=== PATIENT | female | born 1955 | race Caucasian/White ===

== ENCOUNTER 2019-02-22 05:56 | Outpatient (RCR) | payer BC, SELFPAY | END 2019-03-08 00:01 | LOC: ONCMED 05:56 | PROVIDERS: Family Provider Nurse Practitioner; Visit Provider Internal Medicine Hematology & Oncology | DX: Z08 Encounter for follow-up examination after completed treatment for malignant neoplasm (principal); Z85.048 Personal history of other malignant neoplasm of rectum, rectosigmoid junction, and anus; R94.8 Abnormal results of function studies of other organs and systems; K62.89 Other specified diseases of anus and rectum; Z92.21 Personal history of antineoplastic chemotherapy ==

== ENCOUNTER → 2019-03-08 | Outpatient (CLI) | payer SELFPAY | PROVIDERS: Family Provider Nurse Practitioner; Visit Provider Orthopaedic Surgery | DX: Z46.89 Encounter for fitting and adjustment of other specified devices (principal); S52.591A Other fractures of lower end of right radius, initial encounter for closed fracture; X58.XXXA Exposure to other specified factors, initial encounter | CPT/HCPCS: L3982 ==

== ENCOUNTER → 2019-03-17 11:15 | Outpatient (BNVA) | payer BC, SELFPAY | PROVIDERS: Family Provider Nurse Practitioner; PCP Nurse Practitioner; Visit Provider Orthopaedic Surgery | DX: S52.501A Unspecified fracture of the lower end of right radius, initial encounter for closed fracture (principal); X58.XXXA Exposure to other specified factors, initial encounter | CPT/HCPCS: 73110 ==

== ENCOUNTER 2019-03-24 12:00 | Outpatient (CLI) | payer BC, SELFPAY ==
--- NOTE | 2019-03-24 12:08 | MM_ITS ---
WS: [id number] BILATERAL SCREENING MAMMOGRAM WITH REMEDIOS DISPLACEMENT VIEWS. CAD PERFORMED. HISTORY: SCREENING COMPARISON: 12/29/2017 and 05/08/2016 Bilateral craniocaudal and mediolateral like views are performed. Remedios displacement views in CC and MLO projection also performed. Breasts composition: There are scattered areas of fibroglandular density. Retropectoral implants are intact. No suspicious masses or calcifications. FOLLOW-UP: 1 Year Follow-up MM/[id number] IMPRESSION: BI-RADS: 2-Benign
== END 2019-03-24 12:01 | disposition home or self-care (01) ==
LOC: RADSHAW 12:06
PROVIDERS: Family Provider Nurse Practitioner; PCP Nurse Practitioner; Visit Provider Internal Medicine Hematology & Oncology
DX: Z12.31 Encounter for screening mammogram for malignant neoplasm of breast (principal)
CPT/HCPCS: 77067

== ENCOUNTER → 2019-03-31 11:37 | Outpatient (BNVA) | payer BC, SELFPAY | PROVIDERS: Family Provider Nurse Practitioner; PCP Nurse Practitioner; Visit Provider Orthopaedic Surgery | DX: S52.501A Unspecified fracture of the lower end of right radius, initial encounter for closed fracture (principal); T14.8XXA Other injury of unspecified body region, initial encounter; X58.XXXA Exposure to other specified factors, initial encounter | CPT/HCPCS: 73110 ==

== ENCOUNTER → 2019-04-19 11:33 | Outpatient (BNVA) | payer BC, SELFPAY | PROVIDERS: Family Provider Nurse Practitioner; PCP Nurse Practitioner; Visit Provider Orthopaedic Surgery | DX: S52.501A Unspecified fracture of the lower end of right radius, initial encounter for closed fracture (principal); X58.XXXA Exposure to other specified factors, initial encounter | CPT/HCPCS: 73110 ==

== ENCOUNTER 2019-05-25 13:49 | Outpatient (CLI) | payer BC, SELFPAY ==
[2019-05-25 14:16] LABS: Basophils % 0.5 %; Eosinophils # 0.1 10^3/uL (0.0-0.8); Eosinophils % 1.5 %; Hematocrit 36.8 % (37.0-47.0); Hemoglobin 11.7 g/dL (11.5-15.3); Lymphocytes % 24.4 %; Mean Corpuscular HGB Conc 31.8 g/dL (30.0-36.0); Mean Corpuscular Hemoglobin 28.3 pg (28.0-34.0); Mean Corpuscular Volume 89.1 fL (81-99); Mean Platelet Volume 9.3 fL (7.4-10.4); Monocytes # 0.5 10^3/uL (0.2-0.9); Monocytes % 11.2 %; Neutrophils # 2.6 10^3/uL (1.8-7.7); Neutrophils % 62.4 %; Nucleated Red Blood Cells % 0 %; Platelet Count 213 10^3/cmm (130-400); Red Blood Count 4.13 10^6/uL (4.1-5.3); Red Cell Distribution Width 13.3 % (12.1-15.1); White Blood Count 4.1 10^3/uL (4.0-10.0)
[2019-05-25 14:28] LABS: Alanine Aminotransferase 15 U/L (0-33); Albumin Level 3.5 g/dL (3.5-5.2); Alkaline Phosphatase 90 IU/L (35-105); Anion Gap 11.2 (5-19); Aspartate Amino Transferase 16 U/L (0-32); Blood Urea Nitrogen 11 mg/dL (8-23); Calcium 9.6 mg/dL (8.5-10.5); Carbon Dioxide 30 mmol/L (22-29); Chloride 102 mmol/L (98-107); Globulin 4.2 g/dL (1.3-4.6); Glomerular Filtration Rate 45.4 mL/min (90-130); Glucose 110 mg/dL (65-115); Osmolality Calculated 285 mOsm/kg (285-295); Potassium 4.2 mmol/L (3.5-5.1); Sodium 139 mmol/L (136-145); Total Bilirubin 0.4 mg/dL (0.15-1.2); Total Protein 7.7 g/dL (6.6-8.7)
--- NOTE | 2019-05-25 16:51 | ONC FU_ITS ---
Dr. Syed follow up note Patient: Darlene Stoddard Unit #: [id number]: 1955 Dicatated By: Stacey Syed M.D.Date of Visit:May 25, 2019 Onc Med Follow-up/Prog Note History of Present Illness: Mrs. Darlene Stoddard Is a 63-year-old female with recent history of bowel changes including increased frequency and also noted blood in her stool for which she was referred to Dr. Zazueta for evaluation on 01/12/2018 she underwent colonoscopy which showed malignant appearing ductal mass at 10 cm and a biopsies were obtained which confirmed adenocarcinoma and subsequently underwent CT scan of abdomen pelvis which showed supra levator rectosigmoid colon wall lesion measuring approximately 4.2 cm with a mild posterior wall perirectal fat induration. Left iliac sclerosis with ill-defined zone transition infectious process or neoplastic process her differential Right posterior lower lobe patchy groundglass opacity probably inflammatory and then on 01/27/2018 underwent MRI of pelvis showed rectal mass arising from the mid to upper portion of rectum along with the right lateral aspect of rectum and right ostiomeatal lateral aspect showed mild retraction within the adjacent perirectal fat suspicious for invasion through the rectal wall. Multiple enlarged perirectal as well as a dominant enlarged upper presacral lymph node are noted. Patient was referred to Dr. Esquivel who saw her on 01/25/2018 and recommended neoadjuvant chemoradiation followed by surgery. Started on combined chemoradiation with oral Xeloda on 02/18/2018 Which she concluded on 03/31/2018, subsequently underwent laparoscopic rectosigmoid resection and temporary ileostomy on 05/25/2018, final pathology showed clear margins T3 lesion and 0 out of 28 lymph node positive for metastatic disease. 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 used to resolve within a week. She states that after her last treatment show nevus over her legs were paralyzed . She states it felt like there were bees stinging her legs and her legs just wouldn't move. She states this lasted into the morning. It has not recurred. She had no one-sided weakness or numbness otherwise. She states that she had no speech changes she did not have any syncope or confusion. She also states that she's had right upper leg and hip pain for about 3 weeks that has gotten worse than its normal. She also states it radiates around to her lower back area. The back pain is more intermittent and goes from achy to shooting up her back. Chemotherapy was put on hold and She was referred to neurologist in [place], who evaluated her on 11/01/2018 MRI scan of the spine was done which showed no myelopathic cord signal abnormality in the thorax spinal cord. No bone metastases no compression fracture but mild to moderate neural foraminal stenosis at multiple levels and C-spine, MRI brain was unremarkable further testing with nerve conduction study lower extremity is under consideration. X-ray right hip done on 09/20/2018 showed normal right hip, dextro rotoscoliosis of lumbar spine. Mild spondylosis at L1-L2 Patient was referred to GI oncology at [facility] for second opinion regarding whether to continue her adjuvant chemotherapy with progressive peripheral neuropathy. Patient was seen by Dr. saldaña On 01/13/2019 as per her recommendation discontinue oxaliplatin because of progressive neuropathy but continue with Xeloda or 5-FU to complete 6 months of perioperative chemotherapy or discontinue chemotherapy at this time and then follow-up patient opted for second option e.g. discontinue chemotherapy. Also recommended bone scan for left iliac sclerotic lesion evaluation. Came for follow-up, denies any specific complaints, no fever or chills, no nausea or vomiting, but off and on diarrhea , now being controlled with Imodium. No melena or hematochezia no abdominal pain. she was referred to endocrinology for possible Paget's disease evaluation. Patient has seen endocrinology in [place] and workup is in progress to confirm the diagnosis. Medications: Acetaminophen 2 Tablet (of 500 mg) Oral PRN, Breo Ellipta 1 puff(s) (of 200-25 mcg/inh) Aerosol Powder, Breath Activated Inhalation daily, Esomeprazole Magnesium 1 Tablet (of 20 mg) Tablet, enteric coated Oral daily, Zofran 1 Tablet (of 4 mg) Tablet Oral q 6 hours PRN, Zoloft 1 (50 mg) Tablet Oral daily Allergies: Codeine Sulfate and Erythromycin Base. Review of Systems: Constitutional - Appetite is good and weight is stable. No fever, chills, hot flashes, or night sweats. Energy level is good, ENMT - No sinus congestion/drainage. No mouth sores. No sore throat or difficulty swallowing, Hematologic/Lymphatic - No abnormal bruising or bleeding, Respiratory - No shortness of breath. No cough. No pleuritic pain or hemoptysis, Cardiovascular - No angina pain. No palpitations, Gastrointestinal - No nausea or vomiting. No heartburn or acid reflux. No diarrhea or constipation. No blood in the stool or black stools, Genitourinary (F) - No dysuria or hematuria. No urinary frequency. No urgency or incontinence, Musculoskeletal - No joint or bone pain, Neurologic - No headache or dizziness. Pt continues to complain of numbness in upper extremities, Psychiatric - No anxiety or depression. No insomnia. Vital Signs: Performed on May 25, 2019 15:32 Height - 68.00 in Weight - 154.2 lbs (HIGH) BSA - 1.83 sq.m BMI - 23.45 Temperature - 97.3 F (LOW) Pulse - 88 /min Respiration - 18 /min BP - 134/81 mm(hg) O2 Sat - 98 % Pain - 0 Performance Status: 0 - Fully active, able to carry on all predisease activities without restrictions. (ECOG) Physical Examination: ENMT - No oral exudates, ulcers, masses, thrush or mucositis. Oropharynx clear. Tongue normal, Respiratory - Lungs are clear to auscultation without rhonchi or wheezing, Cardiovascular - Regular rate and rhythm of heart, Abdomen - Non-tender, non-distended, Good bowel sounds. No guarding or rebound tenderness. No pulsatile masses, Extremities - no edema. Lab/Imaging: Test performed on Feb 22, 2019 11:55 Ferritin 93.0 ng/ml Iron 53 ug/dL Vitamin B12 352 pg/mL % Iron Saturation 21.5 % UIBC 193 ug/dL WBC 5.1 10 3/uL RBC 4.10 10 6/uL HGB 11.3 g/dL HCT 36.2 % MCV 88.3 fl MCH 27.6 pg MCHC 31.2 g/dl RDW 13.9 % Platelet Count 334 10 3/cmm MPV 9.1 fl Neutrophils 3.6 10 3/uL Lymphocytes 0.9 10 3/uL Monocytes 0.4 10 3/uL Eosinophils 0.1 10 3/uL Basophils 0.0 10 3/uL Neutrophil % 71.3 % Lymphocyte % 18.6 % Monocyte % 7.9 % Eosinophil % 1.6 % Basophils % 0.4 % Test performed on Jan 20, 2019 14:39 Sodium 139 mmol/L Potassium 4.1 mmol/L Chloride 102 mmol/L CO2 23 mmol/L Anion Gap 18.1 BUN 14 mg/dL Creatinine 0.8 mg/dL Cr Clearance (Est) 75.8100 mL/min eGFR 72.7 mL/min Glucose 106 mg/dl Calcium 9.7 mg/dL Protein, Total 7.7 g/dL Albumin 4.0 g/dL Globulin 3.7 gm/dL Bilirubin, Total 0.3 mg/dL ALT (SGPT) 21 U/L AST (SGOT) 20 U/L Alkaline Phosphatase 104 U/L Impression: Infiltrating adenocarcinoma of rectum per colonoscopy done on 01/12/2018 CT scan of abdomen pelvis showed 4.2 cm supralevator rectosigmoid colon wall lesion. With a mild right lateral and posterior wall perirectal fat induration tumoral extension not excluded. MRI scan of pelvis done on 01/27/2018 showed mass in mid to upper portion of rectum. With area of mild retraction within the adjacent perirectal fat suspicious for invasion through the rectal wall. Multiple enlarged perirectal as well as a dominant enlarged upper presacral lymph node noted cT3,Nx,Mx Started on neoadjuvant combined chemoradiation with oral Xeloda 1500 mg by mouth twice a day Thursday through Thursday concurrent with radiation therapy on 02/18/2018 which she concluded on 03/31/2018 Subsequently underwent laparoscopic rectosigmoid resection with end to end anastomosis and temporary ileostomy bag on 05/25/2018. Final pathology report showed tumor size 1.3 x 2 x 0.2 cm, adenocarcinoma, moderately differentiated, extends through muscularis propria into perirectal adipose tissue pT3, 0 out of 28 lymph nodes showed metastatic disease N0, stage pII Being high risk adjuvant chemotherapy with FOLFOX was recommended.Started on adjuvant chemotherapy with FOLFOX ???12 on 06/30/2018 Plan: Discussed with patient regarding her labs white blood count 4.1 hemoglobin 11.7 crit 36.8 platelets 213,000 CMP within normal limits except creatinine 1.2 Clinically, patient doing well with no signs symptom suggestive of recurrence of disease. Her lab workup looks reasonable except mild renal insufficiency, as per patient PMD is following. Patient was seen by endocrinology regarding possible paget's disease, now workup is in progress. Patient was also told about low vitamin D level so she is on supplement now. As far as mild diarrhea is a concern, etiology is unclear could be due to radiation-induced colitis or other colon pathology. Patient is scheduled for follow-up colonoscopy in September 2019, will discuss with surgery if it can be preponed. Next Return to clinic in 4 months with CBC CMP and CEA Signed By: Stacey Syed M.D. <<Signature on File>>
== END 2019-05-25 13:50 | disposition home or self-care (01) ==
PROVIDERS: Family Provider Nurse Practitioner; PCP Nurse Practitioner; Visit Provider Internal Medicine Hematology & Oncology
DX: Z08 Encounter for follow-up examination after completed treatment for malignant neoplasm (principal); Z85.048 Personal history of other malignant neoplasm of rectum, rectosigmoid junction, and anus; E55.9 Vitamin D deficiency, unspecified; Z79.899 Other long term (current) drug therapy; Z98.890 Other specified postprocedural states; Z92.3 Personal history of irradiation; Z92.21 Personal history of antineoplastic chemotherapy
CPT/HCPCS: 36415; 80053; 85025; G0463

== ENCOUNTER 2019-09-20 10:43 | Outpatient (CLI) | payer BC, SELFPAY ==
[2019-09-20 11:08] LABS: Basophils % 0.5 %; Eosinophils # 0.1 10^3/uL (0.0-0.8); Eosinophils % 2.7 %; Hematocrit 38.2 % (37.0-47.0); Hemoglobin 11.9 g/dL (11.5-15.3); Lymphocytes # 1.1 10^3/uL (0.8-4.8); Mean Corpuscular HGB Conc 31.2 g/dL (30.0-36.0); Mean Corpuscular Hemoglobin 27.7 pg (28.0-34.0); Mean Corpuscular Volume 88.8 fL (81-99); Mean Platelet Volume 8.9 fL (7.4-10.4); Monocytes # 0.4 10^3/uL (0.2-0.9); Monocytes % 10.7 %; Neutrophils # 2.18 10^3/uL (1.8-7.7); Neutrophils % 58.1 %; Nucleated Red Blood Cells % 0 %; Platelet Count 231 10^3/cmm (130-400); Red Cell Distribution Width 13.7 % (12.1-15.1); White Blood Count 3.8 10^3/uL (4.0-10.0)
[2019-09-20 11:27] LABS: Alanine Aminotransferase 15 U/L (0-33); Alkaline Phosphatase 84 IU/L (35-105); Anion Gap 9.1 (5-19); Aspartate Amino Transferase 13 U/L (0-32); Blood Urea Nitrogen 9 mg/dL (8-23); Calcium 9.2 mg/dL (8.5-10.5); Carbon Dioxide 29 mmol/L (22-29); Chloride 106 mmol/L (98-107); Globulin 3.8 g/dL (1.3-4.6); Glomerular Filtration Rate 72.4 mL/min (90-130); Glucose 89 mg/dL (65-115); Osmolality Calculated 285 mOsm/kg (285-295); Potassium 4.1 mmol/L (3.5-5.1); Sodium 140 mmol/L (136-145); Total Bilirubin 0.4 mg/dL (0.15-1.2); Total Protein 7.8 g/dL (6.6-8.7)
--- NOTE | 2019-09-20 14:08 | ONC FU_ITS ---
Dr. Syed follow up note Patient: Darlene Stoddard Unit #: [id number]: 1955 Dicatated By: Stacey Syed M.D.Date of Visit:Sep 20, 2019 Onc Med Follow-up/Prog Note History of Present Illness: Mrs. Darlene Stoddard Is a 64-year-old female with recent history of bowel changes including increased frequency and also noted blood in her stool for which she was referred to Dr. Zazueta for evaluation on 01/12/2018 she underwent colonoscopy which showed malignant appearing ductal mass at 10 cm and a biopsies were obtained which confirmed adenocarcinoma and subsequently underwent CT scan of abdomen pelvis which showed supra levator rectosigmoid colon wall lesion measuring approximately 4.2 cm with a mild posterior wall perirectal fat induration. Left iliac sclerosis with ill-defined zone transition infectious process or neoplastic process her differential Right posterior lower lobe patchy groundglass opacity probably inflammatory and then on 01/27/2018 underwent MRI of pelvis showed rectal mass arising from the mid to upper portion of rectum along with the right lateral aspect of rectum and right ostiomeatal lateral aspect showed mild retraction within the adjacent perirectal fat suspicious for invasion through the rectal wall. Multiple enlarged perirectal as well as a dominant enlarged upper presacral lymph node are noted. Patient was referred to Dr. Esquivel who saw her on 01/25/2018 and recommended neoadjuvant chemoradiation followed by surgery. Started on combined chemoradiation with oral Xeloda on 02/18/2018 Which she concluded on 03/31/2018, subsequently underwent laparoscopic rectosigmoid resection and temporary ileostomy on 05/25/2018, final pathology showed clear margins T3 lesion and 0 out of 28 lymph node positive for metastatic disease. 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 used to resolve within a week. She states that after her last treatment show nevus over her legs were paralyzed . She states it felt like there were bees stinging her legs and her legs just wouldn't move. She states this lasted into the morning. It has not recurred. She had no one-sided weakness or numbness otherwise. She states that she had no speech changes she did not have any syncope or confusion. She also states that she's had right upper leg and hip pain for about 3 weeks that has gotten worse than its normal. She also states it radiates around to her lower back area. The back pain is more intermittent and goes from achy to shooting up her back. Chemotherapy was put on hold and She was referred to neurologist in [place], who evaluated her on 11/01/2018 MRI scan of the spine was done which showed no myelopathic cord signal abnormality in the thorax spinal cord. No bone metastases no compression fracture but mild to moderate neural foraminal stenosis at multiple levels and C-spine, MRI brain was unremarkable further testing with nerve conduction study lower extremity is under consideration. X-ray right hip done on 09/20/2018 showed normal right hip, dextro rotoscoliosis of lumbar spine. Mild spondylosis at L1-L2 Patient was referred to GI oncology at [facility] for second opinion regarding whether to continue her adjuvant chemotherapy with progressive peripheral neuropathy. Patient was seen by Dr. saldaña On 01/13/2019 as per her recommendation discontinue oxaliplatin because of progressive neuropathy but continue with Xeloda or 5-FU to complete 6 months of perioperative chemotherapy or discontinue chemotherapy at this time and then follow-up patient opted for second option e.g. discontinue chemotherapy. Also recommended bone scan for left iliac sclerotic lesion evaluation. she was referred to endocrinology for possible Paget's disease evaluation. Patient has seen endocrinology in [place] and workup is in progress to confirm the diagnosis.Patient did miss her follow-up appointment due to COVID-19, now planning to go back for evaluation Came for follow-up, denies any specific complaints, chronic diarrhea is improving now usually 1 'bad' day after 3 good days. Responding well to Lomotil and some times to Imodium. Earlier patient requested Creon and insurance did not cover it so she decided not to take it. Patient is scheduled for follow-up colonoscopy on coming in [place]. She also has persistent but mild neuropathy involving bilateral toes and now considering acupuncture Medications: Acetaminophen 2 Tablet (of 500 mg) Oral PRN, Breo Ellipta 1 puff(s) (of 200-25 mcg/inh) Aerosol Powder, Breath Activated Inhalation daily, Esomeprazole Magnesium 1 Tablet (of 20 mg) Tablet, enteric coated Oral daily, Zofran 1 Tablet (of 4 mg) Tablet Oral q 6 hours PRN, Zoloft 1 (50 mg) Tablet Oral daily Allergies: Codeine Sulfate and Erythromycin Base. Review of Systems: Constitutional - Appetite is good and weight is stable. No fever, chills, hot flashes, or night sweats. Energy level is good, ENMT - No sinus congestion/drainage. No mouth sores. No sore throat or difficulty swallowing, Hematologic/Lymphatic - No abnormal bruising or bleeding, Respiratory - No shortness of breath. No cough. No pleuritic pain or hemoptysis, Cardiovascular - No angina pain. No palpitations, Gastrointestinal - No nausea or vomiting. No heartburn or acid reflux. No diarrhea or constipation. No blood in the stool or black stools, Genitourinary (F) - No dysuria or hematuria. No urinary frequency. No urgency or incontinence, Musculoskeletal - No joint or bone pain, Neurologic - No headache or dizziness. Pt continues to complain of numbness in upper extremities, Psychiatric - No anxiety or depression. No insomnia. Vital Signs: Performed on Sep 20, 2019 11:48 Height - 68.00 in Weight - 144.0 lbs (LOW) BSA - 1.78 sq.m BMI - 21.90 Temperature - 97.9 F (LOW) Pulse - 75 /min Respiration - 18 /min BP - 137/83 mm(hg) O2 Sat - 99 % Pain - 0 Performance Status: 0 - Fully active, able to carry on all predisease activities without restrictions. (ECOG) Physical Examination: ENMT - No mouth sores, no thrush no jaundice, Respiratory - Lungs are clear, Cardiovascular - Regular rate and rhythm of heart, Abdomen - Soft, bowel sounds present, Extremities - No visible edema. Lab/Imaging: Test performed on May 25, 2019 14:05 Sodium 139 mmol/L Potassium 4.2 mmol/L Chloride 102 mmol/L CO2 30 mmol/L Anion Gap 11.2 BUN 11 mg/dL Creatinine 1.2 mg/dL Cr Clearance (Est) 49.8900 mL/min eGFR 45.4 mL/min Glucose 110 mg/dL Calcium 9.6 mg/dL Protein, Total 7.7 g/dL Albumin 3.5 g/dL Globulin 4.2 g/dL Bilirubin, Total 0.4 mg/dL ALT (SGPT) 15 U/L AST (SGOT) 16 U/L Alkaline Phosphatase 90 IU/L WBC 4.1 10 3/uL RBC 4.13 10 6/uL HGB 11.7 g/dL HCT 36.8 % MCV 89.1 fL MCH 28.3 pg MCHC 31.8 g/dL RDW 13.3 % Platelet Count 213 10 3/cmm MPV 9.3 fL Neutrophils 2.6 10 3/uL Lymphocytes 1.0 10 3/uL Monocytes 0.5 10 3/uL Eosinophils 0.1 10 3/uL Basophils 0.0 10 3/uL Neutrophil % 62.4 % Lymphocyte % 24.4 % Monocyte % 11.2 % Eosinophil % 1.5 % Basophils % 0.5 % Impression: Infiltrating adenocarcinoma of rectum per colonoscopy done on 01/12/2018 CT scan of abdomen pelvis showed 4.2 cm supralevator rectosigmoid colon wall lesion. With a mild right lateral and posterior wall perirectal fat induration tumoral extension not excluded. MRI scan of pelvis done on 01/27/2018 showed mass in mid to upper portion of rectum. With area of mild retraction within the adjacent perirectal fat suspicious for invasion through the rectal wall. Multiple enlarged perirectal as well as a dominant enlarged upper presacral lymph node noted cT3,Nx,Mx Started on neoadjuvant combined chemoradiation with oral Xeloda 1500 mg by mouth twice a day Thursday through Thursday concurrent with radiation therapy on 02/18/2018 which she concluded on 03/31/2018 Subsequently underwent laparoscopic rectosigmoid resection with end to end anastomosis and temporary ileostomy bag on 05/25/2018. Final pathology report showed tumor size 1.3 x 2 x 0.2 cm, adenocarcinoma, moderately differentiated, extends through muscularis propria into perirectal adipose tissue pT3, 0 out of 28 lymph nodes showed metastatic disease N0, stage pII Being high risk adjuvant chemotherapy with FOLFOX was recommended.Started on adjuvant chemotherapy with FOLFOX ???12 on 06/30/2018 Plan: Discussed with patient regarding her labs white blood count 3.8 hemoglobin 11.9 hematocrit 38.2 platelets 231,000 CMP within normal limits creatinine 0.8 compared to 1.2 previously Clinically, patient doing well with no signs symptoms suggestive of recurrence of disease. Chronic diarrhea etiology unclear, radiation-induced colitis versus malabsorption versus diet. But responding well to antidiarrheal, patient was advised to rely on Imodium if not effective then she can try Lomotil. Lab work-up shows electrolytes within normal range. Mild leukopenia, etiology unclear, will continue to monitor Return to clinic in 3 months with CBC CMP. Patient is being evaluated by endocrinology for her possible Paget's disease in [place], patient missed her appointment due to COVID-19, now planning to go back for evaluation and work-up. And also scheduled for follow-up colonoscopy on coming in [place]. Mild peripheral neuropathy involving bilateral toes, stable, patient is considering acupuncture trial. Signed By: Stacey Syed M.D. <<Signature on File>>
== END 2019-09-20 10:44 | disposition home or self-care (01) ==
PROVIDERS: PCP Nurse Practitioner; Visit Provider Internal Medicine Hematology & Oncology
DX: Z08 Encounter for follow-up examination after completed treatment for malignant neoplasm (principal); Z85.048 Personal history of other malignant neoplasm of rectum, rectosigmoid junction, and anus; G62.9 Polyneuropathy, unspecified; Z92.3 Personal history of irradiation; Z92.21 Personal history of antineoplastic chemotherapy
CPT/HCPCS: 80053; 85025; G0463

== ENCOUNTER 2019-12-23 05:53 | Outpatient (CLI) | payer BC, SELFPAY ==
[2019-12-23 09:47] LABS: Basophils % 0.2 %; Hematocrit 35.8 % (37.0-47.0); Hemoglobin 11.4 g/dL (11.5-15.3); Lymphocytes # 1.6 10^3/uL (0.8-4.8); Lymphocytes % 12.3 %; Mean Corpuscular HGB Conc 31.8 g/dL (30.0-36.0); Mean Corpuscular Hemoglobin 28.1 pg (28.0-34.0); Mean Corpuscular Volume 88.4 fL (81-99); Mean Platelet Volume 9.1 fL (7.4-10.4); Monocytes # 0.6 10^3/uL (0.2-0.9); Monocytes % 4.6 %; Neutrophils # 10.47 10^3/uL (1.8-7.7); Neutrophils % 80.3 %; Nucleated Red Blood Cells % 0 %; Platelet Count 336 10^3/cmm (130-400); Red Blood Count 4.05 10^6/uL (4.1-5.3); Red Cell Distribution Width 13.4 % (12.1-15.1)
[2019-12-23 09:56] LABS: Alanine Aminotransferase 21 U/L (0-33); Alkaline Phosphatase 117 IU/L (35-105); Anion Gap 13.9 (5-19); Aspartate Amino Transferase 13 U/L (0-32); Blood Urea Nitrogen 22 mg/dL (8-23); Calcium 9.9 mg/dL (8.5-10.5); Carbon Dioxide 25 mmol/L (22-29); Chloride 102 mmol/L (98-107); Glomerular Filtration Rate 84.5 mL/min (90-130); Glucose 139 mg/dL (65-115); Osmolality Calculated 290 mOsm/kg (285-295); Potassium 3.9 mmol/L (3.5-5.1); Sodium 137 mmol/L (136-145); Total Bilirubin 0.2 mg/dL (0.15-1.2)
--- NOTE | 2019-12-23 13:00 | ONC FU_ITS ---
Dr. Syed follow up note Patient: Darlene Stoddard Unit #: [id number]: 1955 Dicatated By: Stacey Syed M.D.Date of Visit:Dec 23, 2019 Onc Med Follow-up/Prog Note History of Present Illness: Mrs. Darlene Stoddard Is a 64-year-old female with recent history of bowel changes including increased frequency and also noted blood in her stool for which she was referred to Dr. Zazueta for evaluation on 01/12/2018 she underwent colonoscopy which showed malignant appearing ductal mass at 10 cm and a biopsies were obtained which confirmed adenocarcinoma and subsequently underwent CT scan of abdomen pelvis which showed supra levator rectosigmoid colon wall lesion measuring approximately 4.2 cm with a mild posterior wall perirectal fat induration. Left iliac sclerosis with ill-defined zone transition infectious process or neoplastic process her differential Right posterior lower lobe patchy groundglass opacity probably inflammatory and then on 01/27/2018 underwent MRI of pelvis showed rectal mass arising from the mid to upper portion of rectum along with the right lateral aspect of rectum and right ostiomeatal lateral aspect showed mild retraction within the adjacent perirectal fat suspicious for invasion through the rectal wall. Multiple enlarged perirectal as well as a dominant enlarged upper presacral lymph node are noted. Patient was referred to Dr. Esquivel who saw her on 01/25/2018 and recommended neoadjuvant chemoradiation followed by surgery. Started on combined chemoradiation with oral Xeloda on 02/18/2018 Which she concluded on 03/31/2018, subsequently underwent laparoscopic rectosigmoid resection and temporary ileostomy on 05/25/2018, final pathology showed clear margins T3 lesion and 0 out of 28 lymph node positive for metastatic disease. 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 used to resolve within a week. She states that after her last treatment show nevus over her legs were paralyzed . She states it felt like there were bees stinging her legs and her legs just wouldn't move. She states this lasted into the morning. It has not recurred. She had no one-sided weakness or numbness otherwise. She states that she had no speech changes she did not have any syncope or confusion. She also states that she's had right upper leg and hip pain for about 3 weeks that has gotten worse than its normal. She also states it radiates around to her lower back area. The back pain is more intermittent and goes from achy to shooting up her back. Chemotherapy was put on hold and She was referred to neurologist in [place], who evaluated her on 11/01/2018 MRI scan of the spine was done which showed no myelopathic cord signal abnormality in the thorax spinal cord. No bone metastases no compression fracture but mild to moderate neural foraminal stenosis at multiple levels and C-spine, MRI brain was unremarkable further testing with nerve conduction study lower extremity is under consideration. X-ray right hip done on 09/20/2018 showed normal right hip, dextro rotoscoliosis of lumbar spine. Mild spondylosis at L1-L2 Patient was referred to GI oncology at [facility] for second opinion regarding whether to continue her adjuvant chemotherapy with progressive peripheral neuropathy. Patient was seen by Dr. saldaña On 01/13/2019 as per her recommendation discontinue oxaliplatin because of progressive neuropathy but continue with Xeloda or 5-FU to complete 6 months of perioperative chemotherapy or discontinue chemotherapy at this time and then follow-up patient opted for second option e.g. discontinue chemotherapy. Also recommended bone scan for left iliac sclerotic lesion evaluation. she was referred to endocrinology for possible Paget's disease evaluation. Patient has seen endocrinology in [place] and workup is in progress to confirm the diagnosis.Patient did miss her follow-up appointment due to COVID-19, now planning to go back for evaluation Came for follow-up, denies any specific complaint but now recovering from COPD exacerbation, on antibiotics doxycycline and steroids by PMD. And feeling better. No melena or hematochezia, no nausea or vomiting, no jaundice, no hemoptysis or hematemesis, no abdominal pain. Patient had colonoscopy done in [place] in September 2019 as per patient was unremarkable. Her Port-A-Cath is also out. Patient has seen endocrinology for Paget's disease, DEXA scan was ordered and now she is waiting for rescheduled date. Since her last visit she has seen neurology for her persistent lower extremity neuropathy, patient said she was given medication but she did not like it, now neuropathy is improving and she is not taking any medicine and decided not to follow-up with neurology either Medications: Acetaminophen 2 Tablet (of 500 mg) Oral PRN, Breo Ellipta 1 puff(s) (of 200-25 mcg/inh) Aerosol Powder, Breath Activated Inhalation daily, Doxycycline 1 Capsule (of 40 mg) Capsule Delayed Release Oral daily for 7 days, Esomeprazole Magnesium 1 Tablet (of 20 mg) Tablet, enteric coated Oral daily, predniSONE Tablet Oral Take as Directed, Zofran 1 Tablet (of 4 mg) Tablet Oral q 6 hours PRN, Zoloft 1 (50 mg) Tablet Oral daily Allergies: Codeine Sulfate and Erythromycin Base. Review of Systems: Constitutional - Appetite is good and weight is stable. No fever, chills, hot flashes, or night sweats. Energy level is good, ENMT - No sinus congestion/drainage. No mouth sores. No sore throat or difficulty swallowing, Hematologic/Lymphatic - No abnormal bruising or bleeding, Respiratory - No shortness of breath. No cough. No pleuritic pain or hemoptysis, Cardiovascular - No angina pain. No palpitations, Gastrointestinal - No nausea or vomiting. No heartburn or acid reflux. No diarrhea or constipation. No blood in the stool or black stools, Genitourinary (F) - No dysuria or hematuria. No urinary frequency. No urgency or incontinence, Musculoskeletal - No joint or bone pain, Neurologic - No headache or dizziness, Psychiatric - No anxiety or depression. No insomnia. Vital Signs: Performed on Dec 23, 2019 11:16 Height - 68.00 in Weight - 143.0 lbs (LOW) BSA - 1.77 sq.m BMI - 21.74 Temperature - 98.3 F (LOW) Pulse - 69 /min Respiration - 18 /min BP - 147/95 mm(hg) (HIGH) O2 Sat - 98 % Pain - 0 Performance Status: 0 - Fully active, able to carry on all predisease activities without restrictions. (ECOG) Physical Examination: ENMT - No mouth sores, no thrush, no jaundice, Respiratory - Poor air entry mild wheezing, Cardiovascular - Regular rate and rhythm of heart, Abdomen - Soft, bowel sounds present, Extremities - No visible edema. Lab/Imaging: Test performed on Sep 20, 2019 10:55 Sodium 140 mmol/L Potassium 4.1 mmol/L Chloride 106 mmol/L CO2 29 mmol/L Anion Gap 9.1 BUN 9 mg/dL Creatinine 0.8 mg/dL Cr Clearance (Est) 74.8400 mL/min eGFR 72.4 mL/min Glucose 89 mg/dL Calcium 9.2 mg/dL Protein, Total 7.8 g/dL Albumin 4.0 g/dL Globulin 3.8 g/dL Bilirubin, Total 0.4 mg/dL ALT (SGPT) 15 U/L AST (SGOT) 13 U/L Alkaline Phosphatase 84 IU/L WBC 3.8 10 3/uL RBC 4.30 10 6/uL HGB 11.9 g/dL HCT 38.2 % MCV 88.8 fL MCH 27.7 pg MCHC 31.2 g/dL RDW 13.7 % Platelet Count 231 10 3/cmm MPV 8.9 fL Neutrophils 2.18 10 3/uL Lymphocytes 1.1 10 3/uL Monocytes 0.4 10 3/uL Eosinophils 0.1 10 3/uL Basophils 0.0 10 3/uL Neutrophil % 58.1 % Lymphocyte % 28.0 % Monocyte % 10.7 % Eosinophil % 2.7 % Basophils % 0.5 % NRBC % 0 % Impression: Infiltrating adenocarcinoma of rectum per colonoscopy done on 01/12/2018 CT scan of abdomen pelvis showed 4.2 cm supralevator rectosigmoid colon wall lesion. With a mild right lateral and posterior wall perirectal fat induration tumoral extension not excluded. MRI scan of pelvis done on 01/27/2018 showed mass in mid to upper portion of rectum. With area of mild retraction within the adjacent perirectal fat suspicious for invasion through the rectal wall. Multiple enlarged perirectal as well as a dominant enlarged upper presacral lymph node noted cT3,Nx,Mx Started on neoadjuvant combined chemoradiation with oral Xeloda 1500 mg by mouth twice a day Thursday through Thursday concurrent with radiation therapy on 02/18/2018 which she concluded on 03/31/2018 Subsequently underwent laparoscopic rectosigmoid resection with end to end anastomosis and temporary ileostomy bag on 05/25/2018. Final pathology report showed tumor size 1.3 x 2 x 0.2 cm, adenocarcinoma, moderately differentiated, extends through muscularis propria into perirectal adipose tissue pT3, 0 out of 28 lymph nodes showed metastatic disease N0, stage pII Being high risk adjuvant chemotherapy with FOLFOX was recommended.Started on adjuvant chemotherapy with FOLFOX ???12 on 06/30/2018 Plan: Discussed with patient regarding her labs white blood count 13 hemoglobin 11.4 hematocrit 35. 8 platelets 336,000 CMP within normal limits Clinically, patient is doing well with no signs symptom suggestive of recurrence of disease. Her follow-up colonoscopy done in September 2019 was unremarkable. Her lab work-up looks reasonable with stable mild anemia. We will continue to monitor and she will return to clinic in 6 months with CBC CMP. Mild leukocytosis probably due to steroids, patient is oral antibiotic and steroids for COPD exacerbation. Signed By: Stacey Syed M.D. <<Signature on File>>
== END 2019-12-23 05:54 | disposition home or self-care (01) ==
LOC: ONCMED 05:53
PROVIDERS: PCP Nurse Practitioner; Visit Provider Internal Medicine Hematology & Oncology
DX: Z08 Encounter for follow-up examination after completed treatment for malignant neoplasm (principal); Z85.048 Personal history of other malignant neoplasm of rectum, rectosigmoid junction, and anus; J44.1 Chronic obstructive pulmonary disease with (acute) exacerbation; Z92.21 Personal history of antineoplastic chemotherapy; Z92.3 Personal history of irradiation; Z90.49 Acquired absence of other specified parts of digestive tract; Z79.52 Long term (current) use of systemic steroids
CPT/HCPCS: 36415; 80053; 85025; G0463

== ENCOUNTER 2020-07-20 09:15 | Outpatient (CLI) | payer BC, SELFPAY ==
--- NOTE | 2020-07-20 09:45 | FL_ITS ---
WS: [id number] Barium swallow and esophagram, 07/20/2020 Clinical Data: DYSPHAGIA Comparison: None. Fluoroscopy time: 1.1 minutes. Findings: The patient swallowed the thick and thin barium, and it flowed through the hypopharynx without hesita tion. No stricture, mass, polyp or erosion was seen. The barium entered the esophagus and there was reduced motility throughout. No hiatal hernia, strict ure, polyp, mass, erosion or ulcer was noted. There was moderate gastroesophageal reflux.. FL/FL barium swallow [id number] Impression: 1. Poor esophageal motility. 2. Negative for hiatal hernia but there was moderate gastroesophageal reflux.
== END 2020-07-20 09:16 | disposition home or self-care (01) ==
LOC: RADWPI 09:18
PROVIDERS: PCP Nurse Practitioner; Visit Provider Family Medicine
DX: R13.10 Dysphagia, unspecified (principal)
CPT/HCPCS: 74220

== ENCOUNTER 2020-11-22 13:29 | Outpatient (CLI) | payer BC, SELFPAY ==
[2020-11-22 14:23] LABS: Basophils % 0.5 %; Eosinophils # 0.1 10^3/uL (0.0-0.8); Eosinophils % 1.6 %; Hematocrit 37.7 % (37.0-47.0); Lymphocytes # 1.7 10^3/uL (0.8-4.8); Lymphocytes % 29.7 %; Mean Corpuscular HGB Conc 31.8 g/dL (30.0-36.0); Mean Corpuscular Hemoglobin 28.6 pg (28.0-34.0); Mean Corpuscular Volume 89.8 fl (81-99); Mean Platelet Volume 8.9 fL (7.4-10.4); Monocytes # 0.5 10^3/uL (0.2-0.9); Monocytes % 8.4 %; Neutrophils # 3.28 10^3/uL (1.8-7.7); Neutrophils % 58.9 %; Nucleated Red Blood Cells % 0 %; Platelet Count 217 10^3/cmm (130-400); Red Cell Distribution Width 13.5 % (12.1-15.1); White Blood Count 5.6 10^3/uL (4.0-10.0)
[2020-11-22 14:59] LABS: Alanine Aminotransferase 11 U/L (0-33); Albumin Level 3.8 g/dL (3.5-5.2); Alkaline Phosphatase 87 IU/L (35-105); Anion Gap 12.9 (5-19); Aspartate Amino Transferase 10 U/L (0-32); Blood Urea Nitrogen 14 mg/dL (8-23); Calcium 8.9 mg/dL (8.5-10.5); Carbon Dioxide 26 mmol/L (22-29); Chloride 104 mmol/L (98-107); Globulin 3.2 g/dL (1.3-4.6); Glomerular Filtration Rate 84.2 mL/min (90-130); Glucose 132 mg/dL (65-115); Osmolality Calculated 290 mOsm/kg (285-295); Potassium 3.9 mmol/L (3.5-5.1); Sodium 139 mmol/L (136-145); Total Bilirubin 0.3 mg/dL (0.15-1.2)
== END 2020-11-22 13:30 | disposition home or self-care (01) ==
LOC: ONCMED 13:34
PROVIDERS: PCP Nurse Practitioner; Visit Provider Internal Medicine Hematology & Oncology
DX: C20 Malignant neoplasm of rectum (principal)
CPT/HCPCS: 36415; 80053; 85025

== ENCOUNTER 2020-11-29 06:41 | Outpatient (CLI) | payer BC, SELFPAY ==
--- NOTE | 2020-11-30 12:57 | ONC FU_ITS ---
Dr. Syed follow up note Patient: Darlene Stoddard Unit #: [id number]: 1955 Dicatated By: Stacey Syed M.D.Date of Visit:Nov 29, 2020 Onc Med Follow-up/Prog Note History of Present Illness: Mrs. Darlene Stoddard Is a 65-year-old female with recent history of bowel changes including increased frequency and also noted blood in her stool for which she was referred to Dr. Zazueta for evaluation on 01/12/2018 she underwent colonoscopy which showed malignant appearing ductal mass at 10 cm and a biopsies were obtained which confirmed adenocarcinoma and subsequently underwent CT scan of abdomen pelvis which showed supra levator rectosigmoid colon wall lesion measuring approximately 4.2 cm with a mild posterior wall perirectal fat induration. Left iliac sclerosis with ill-defined zone transition infectious process or neoplastic process her differential Right posterior lower lobe patchy groundglass opacity probably inflammatory and then on 01/27/2018 underwent MRI of pelvis showed rectal mass arising from the mid to upper portion of rectum along with the right lateral aspect of rectum and right ostiomeatal lateral aspect showed mild retraction within the adjacent perirectal fat suspicious for invasion through the rectal wall. Multiple enlarged perirectal as well as a dominant enlarged upper presacral lymph node are noted. Patient was referred to Dr. Esquivel who saw her on 01/25/2018 and recommended neoadjuvant chemoradiation followed by surgery. Started on combined chemoradiation with oral Xeloda on 02/18/2018 Which she concluded on 03/31/2018, subsequently underwent laparoscopic rectosigmoid resection and temporary ileostomy on 05/25/2018, final pathology showed clear margins T3 lesion and 0 out of 28 lymph node positive for metastatic disease. 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 used to resolve within a week. She states that after her last treatment show nevus over her legs were paralyzed . She states it felt like there were bees stinging her legs and her legs just wouldn't move. She states this lasted into the morning. It has not recurred. She had no one-sided weakness or numbness otherwise. She states that she had no speech changes she did not have any syncope or confusion. She also states that she's had right upper leg and hip pain for about 3 weeks that has gotten worse than its normal. She also states it radiates around to her lower back area. The back pain is more intermittent and goes from achy to shooting up her back. Chemotherapy was put on hold and She was referred to neurologist in [place], who evaluated her on 11/01/2018 MRI scan of the spine was done which showed no myelopathic cord signal abnormality in the thorax spinal cord. No bone metastases no compression fracture but mild to moderate neural foraminal stenosis at multiple levels and C-spine, MRI brain was unremarkable further testing with nerve conduction study lower extremity is under consideration. X-ray right hip done on 09/20/2018 showed normal right hip, dextro rotoscoliosis of lumbar spine. Mild spondylosis at L1-L2 Patient was referred to GI oncology at [facility] for second opinion regarding whether to continue her adjuvant chemotherapy with progressive peripheral neuropathy. Patient was seen by Dr. saldaña On 01/13/2019 as per her recommendation discontinue oxaliplatin because of progressive neuropathy but continue with Xeloda or 5-FU to complete 6 months of perioperative chemotherapy or discontinue chemotherapy at this time and then follow-up patient opted for second option e.g. discontinue chemotherapy. Also recommended bone scan for left iliac sclerotic lesion evaluation. she was referred to endocrinology for possible Paget's disease evaluation. 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 Otherwise denies any melena or hematochezia denies any hemoptysis hematemesis denies any jaundice denies any abdominal pain, weight is stable rather she is gaining weight. Medications: Aspirin 81 1 Tablet (of 81 mg) Tablet, chewable Oral daily, Breo Ellipta 1 puff(s) (of 200-25 mcg/inh) Aerosol Powder, Breath Activated Inhalation daily, Pantoprazole Sodium 1 Tablet (of 40 mg) Tablet, enteric coated Oral daily, Zofran 1 Tablet (of 4 mg) Tablet Oral q 6 hours PRN, Zoloft 1 (50 mg) Tablet Oral daily Allergies: Codeine Sulfate and Erythromycin Base. Review of Systems: Review of Systems is not available for this patient. Vital Signs: Performed on Nov 29, 2020 10:10 Height - 68.00 in Weight - 153.4 lbs (HIGH) BSA - 1.83 sq.m BMI - 23.32 Temperature - 97.3 F (LOW) Pulse - 75 /min Respiration - 18 /min BP - 176/85 mm(hg) (HIGH) O2 Sat - 99 % Pain - 4 Performance Status: 0 - Fully active, able to carry on all predisease activities without restrictions. (ECOG) Physical Examination: ENMT - No mouth sores, no thrush, no jaundice, Respiratory - Lungs are clear to auscultation, Cardiovascular - Regular rate and rhythm of heart, Abdomen - Soft, bowel sounds present, Extremities - No visible edema. Lab/Imaging: Most recent lab results are not available for this patient. Impression: Infiltrating adenocarcinoma of rectum per colonoscopy done on 01/12/2018 CT scan of abdomen pelvis showed 4.2 cm supralevator rectosigmoid colon wall lesion. With a mild right lateral and posterior wall perirectal fat induration tumoral extension not excluded. MRI scan of pelvis done on 01/27/2018 showed mass in mid to upper portion of rectum. With area of mild retraction within the adjacent perirectal fat suspicious for invasion through the rectal wall. Multiple enlarged perirectal as well as a dominant enlarged upper presacral lymph node noted cT3,Nx,Mx Started on neoadjuvant combined chemoradiation with oral Xeloda 1500 mg by mouth twice a day Thursday through Thursday concurrent with radiation therapy on 02/18/2018 which she concluded on 03/31/2018 Subsequently underwent laparoscopic rectosigmoid resection with end to end anastomosis and temporary ileostomy bag on 05/25/2018. Final pathology report showed tumor size 1.3 x 2 x 0.2 cm, adenocarcinoma, moderately differentiated, extends through muscularis propria into perirectal adipose tissue pT3, 0 out of 28 lymph nodes showed metastatic disease N0, stage pII Being high risk adjuvant chemotherapy with FOLFOX was recommended.Started on adjuvant chemotherapy with FOLFOX ???12 on 06/30/2018 Plan: Discussed with patient regarding her labs white blood count 5.6 hemoglobin 12 hematocrit 37.7 platelets 217,000 CMP within normal limits Patient has no signs symptoms history of recurrence of disease her lab work-up is within normal range Now at patient request we will refer her local endocrinology clinic for evaluation for Paget's disease and patient is on antidepression for long time and she was complaining of couple of episodes of emotional outburst, we will refer her to psychiatry for evaluation and readjustment of her medication. We will also order follow-up mammogram. She will return to clinic in 6 months with CBC CMP. Signed By: Stacey Syed M.D. <<Signature on File>>
== END 2020-11-29 06:42 | disposition home or self-care (01) ==
LOC: ONCMED 06:41
PROVIDERS: PCP Nurse Practitioner; Visit Provider Internal Medicine Hematology & Oncology
DX: Z08 Encounter for follow-up examination after completed treatment for malignant neoplasm (principal); Z85.038 Personal history of other malignant neoplasm of large intestine; Z92.21 Personal history of antineoplastic chemotherapy; M88.9 Osteitis deformans of unspecified bone; Z79.82 Long term (current) use of aspirin; Z79.899 Other long term (current) drug therapy
CPT/HCPCS: 99214

== ENCOUNTER 2021-01-14 09:29 | Outpatient (CLI) | payer BC, SELFPAY ==
--- NOTE | 2021-01-14 09:36 | NM_ITS ---
WS: [id number] NUCLEAR MEDICINE WHOLE BODY BONE SCAN HISTORY: SUSPECTED PAGETS COMPARISON: 02/02/2019, CT 12/28/2018 TECHNIQUE: The patient was injected with 25.0 mCi of Technetium 99m HDP and serial whole-body scintig dav have been performed with anterior and posterior images. Diffuse uptake throughout the calvarium is similar to the prior examination. There is also very mild increased uptake but slightly improved since the prior examination through the sacrum and along the S I joints. Mild degenerative changes at the AC joints and glenohumeral joints and at the knees. Thorac olumbar scoliosis. As compared to the prior study there is been no progression of skeletal uptake. Normal soft tissue up take. Both kidneys are identified. NM/NM bone scan whole body* [id number] IMPRESSION: 1. Stable increased uptake within the skull and sacrum as seen on the prior ex amination from 02/02/2019. As thought before this is most likely Paget's due to its distribution and stability. 2. No evidence for metastatic disease or interval change.
== END 2021-01-14 09:30 | disposition home or self-care (01) ==
PROVIDERS: PCP Family Medicine; Visit Provider Internal Medicine
DX: M88.9 Osteitis deformans of unspecified bone (principal)
CPT/HCPCS: 78306; A9561

== ENCOUNTER → 2021-01-18 10:30 | Outpatient (BNVA) | payer BC, SELFPAY | PROVIDERS: PCP Family Medicine; Visit Provider Nurse Practitioner Family | DX: Z20.822 Contact with and (suspected) exposure to COVID-19 (principal) | CPT/HCPCS: 87426 ==

== ENCOUNTER 2021-01-24 13:23 | Outpatient (CLI) | payer BC, SELFPAY ==
[2021-01-24 14:10] VITALS: BP 151/77; PULSE 95; RESP 20; TEMP 36.4; O2SAT 97; BMI 22.8
[2021-01-24 14:18] VITALS: BP 139/76; PULSE 87; RESP 18; TEMP 36.1; O2SAT 95
[2021-01-24 15:18] VITALS: BP 143/77; PULSE 83; RESP 18; TEMP 36.4; O2SAT 95
== END 2021-01-24 13:24 | disposition home or self-care (01) ==
PROVIDERS: PCP Family Medicine; Visit Provider Nurse Practitioner Family
DX: U07.1 COVID-19 (principal)
CPT/HCPCS: 96365

== ENCOUNTER 2021-03-26 13:48 | Outpatient (CLI) | payer MEDICARE, BC, SELFPAY ==
--- NOTE | 2021-03-26 14:08 | XRR_ITS ---
PROCEDURE INFORMATION: Exam: XR Skull Exam date and time: 03/26/2021 2:08 PM Age: 66 years old Clinical indication: Condition or disease; Other: Suspecting paget's disease; Patient HX: Paget's disease, had recent nuclear bone scan; Additional info: Suspecting paget's disease, HX of colorectal cancer TECHNIQUE: Imaging protocol: XR of the skull. Views: Minimum of 4 views. COMPARISON: CR Skull Complete* [id number] 02/02/2019 1:54 PM FINDINGS: Sinuses: Well aerated. No opacification. Bones/joints: No fracture. No lytic or sclerotic calvarial lesions are seen. Soft tissues: Unremarkable. XR/XR skull min 4V* [id number] IMPRESSION: Unremarkable. No radiographic findings to indicate Paget's disease of the skull.
--- NOTE | 2021-03-26 14:08 | XRR_ITS ---
PROCEDURE INFORMATION: Exam: XR Pelvis Exam date and time: 03/26/2021 2:08 PM Age: 66 years old Clinical indication: Condition or disease; Other: Suspecting paget's disease; Prior surgery; Surgery type: Colon; Patient HX: HX of colorectal cx TECHNIQUE: Imaging protocol: XR pelvis. Views: 1 or 2 view. COMPARISON: CT Chest/Abdomen/Pelvis w IV* 12/28/2018 1:15 PM FINDINGS: Bones/joints: No asymmetric enlargement or coarsened trabeculation of the osseous structures of the pelvis. No acute fracture. Soft tissues: Unremarkable. XR/XR pelvis 1-2V* [id number] IMPRESSION: No radiographic findings to indicate Paget's disease of the pelvis.
--- NOTE | 2021-03-26 14:15 | XR_ITS ---
WS: [id number] SCREENING DEXA SCAN [employer] CLINICAL INFORMATION: osteoporosis COMPARISON: None. FINDINGS: Lumbar scoliosis convex right. The L1-L4 bone mineral density measures 0.763 g/cm2. This corresponds to a T score score of -3.5 and Z score of -2.0. Left femoral neck bone mineral density measures 0.814 g/cm2. This corresponds to a T score of -1.5 an d Z score of -0.4. Right femoral neck bone mineral density measures 0.789 g/cm2. This corresponds to a T score -1.7of an d Z score of -0.6. Mean femoral neck bone mineral density measures 0.802 g/cm2. This corresponds to a T score of -1.6 an d Z score of -0.5. XR/XR DEXA axial skeleton* [id number] IMPRESSION: Osteoporosis in the lumbar spine. Osteopenia in the femoral necks. Patient's FRAX calculated 10 year probability for major osteoporotic fracture i s 18.1 % and osteoporotic hip fracture is 3.1%.
== END 2021-03-26 13:49 | disposition home or self-care (01) ==
PROVIDERS: PCP Family Medicine; Visit Provider Internal Medicine
DX: M81.0 Age-related osteoporosis without current pathological fracture (principal); M88.9 Osteitis deformans of unspecified bone
CPT/HCPCS: 70260; 72170; 77080

== ENCOUNTER → 2021-04-01 11:01 | Outpatient (BNVA) | payer MEDICARE, BC, SELFPAY | PROVIDERS: PCP Family Medicine; Visit Provider Internal Medicine | DX: M81.0 Age-related osteoporosis without current pathological fracture (principal); M88.9 Osteitis deformans of unspecified bone; G62.0 Drug-induced polyneuropathy; T45.1X5A Adverse effect of antineoplastic and immunosuppressive drugs, initial encounter; G62.9 Polyneuropathy, unspecified | CPT/HCPCS: 99214 ==

== ENCOUNTER 2021-06-08 20:07 | Emergency (ER) | payer MEDICARE, SELFPAY ==
[2021-06-08 20:19] VITALS: BP 142/86; PULSE 103; RESP 24; TEMP 36.2; O2SAT 100; BMI 22.0
--- NOTE | 2021-06-08 20:53 | ED_ITS ---
Documented by User: Isael Rodriguez MD 06/15/21 23:58 HPI - SOB/Dyspnea General: Chief Complaint: Shortness of Breath/Dyspnea Stated Complaint: Blood H2o 61, Covid Symptoms Time Seen by Provider: 06/08/21 20:53 History of Present Illness: HPI Narrative: Ms. Stoddard is a 66-year-old lady with history of asthma typically well control led, history of Paget's disease and also history of colon cancer not currently on active chemotherapy who presents to the emergency department due to infectious respiratory symptoms. She endorses symptom onset approximately 5 days ago while and symptoms were subacute in onset. She endorses headache, body aches, cough, shortness of breath, and chest soreness. Symptoms initially were fairly mild however has significantly worsened and become moderate to severe in intensity. She endorses cough and shortness of breath with exertion. She has been increasing her dose of home asthma related treatments, typically her asthma is well controlled, and continue to not feel well with wheezing. She did not receive her flu vaccine but does have a history of Covid and received Covid vaccine. No other specific changes in health, exacerbating, or alleviating factors identified. Onset (ago): day(s) Timing: constant Severity: moderate Associated symptoms: Reports chest congestion, cough and myalgias Review of Systems General: Reports: 10 or more systems reviewed and unremarkable except in HPI and below Resp: Reports: chest congestion PFSH ED PFSH: Medical History Asthma Colorectal cancer Depression Diverticulosis Neuropathy of both feet Psychiatric care Rectal cancer Saline breast implant in situ Scoliosis Surgical History H/O ileostomy H/O: hysterectomy History of breast augmentation History of tonsillectomy Family History Father Cancer Atrial fibrillation Hypertension Mother Arterial stenosis Hyperlipidemia Hypertension Grandmother Diabetes Other Alzheimer disease Neuropathy Stroke Social History Alcohol intake: current Alcohol intake frequency: holidays/special occasions only Caregiver/support person: Yes Lives independently: Yes Household members: spouse Marital status: Current occupational status: retired Physical Exam Const: COMMON NORMALS: alert GENERAL APPEARANCE: cooperative, well d eveloped and ill appearing (Somewhat) HENMT: COMMON NORMALS: normocephalic and atraumatic HEAD & SCALP: normocephalic and atraumatic THROAT: posterior oropharynx normal Eye: COMMON NORMALS: conjunctivae normal CONJUNCTIVA: Yes conjunctivae normal SCLERA: sclerae normal Neck/C-Spine: COMMON NORMALS: supple GENERAL: Yes trachea midline Resp: EFFORT & INSPECTION: Yes able to speak in complete sentences AUSCULTATION: wheezes expiratory wheezes and diminished lung sounds Cardio: COMMON NORMALS: regular rhythm RATE: tachycardic RHYTHM: regular rhythm GI: COMMON NORMALS: Soft to palpation PALPATION: Yes Soft to palpation and No Tenderness to palpation present (GI) PERCUSSION: normal to percussion Extremity: GENERAL: Yes normal exam except as noted and No edema Neuro: COMMON NORMALS: moves all extremities SENSORIUM/ORIENTATION: Yes alert and No Orientation impaired Psych: COMMON NORMALS: mental status grossly normal and Normal thought process present THOUGHT PROCESS: Normal thought process present Course ED course: - Patient was seen and evaluated by me at bedside - Patient placed on cardiac monitors, IV access obtained - Initial evaluation notable for exam as above. - Labs and xrays personally interpreted by me. EKG at 2149 and 2303 personally interpreted by me. Mild nonspecific ST segment abnormalities. No STEMI. - RT treatment and symptom treatment noted - Labs notable for leukopenia, normal hemoglobin. Metabolic panel with mild evidence of dehydration. Viral studies pending. - Imaging notable for no lobar consolidation or pneumothorax. - Patient care handed off to overnight ED physician Dr. Concepcion pending completion of treatment and viral studies. Note: Click bubbles or prepopulated campos in note writing are used for assistance with data collection and billing and are inherently more limited than narrative and other text portions of this note. Please use narrative for additional clinical history and defer to narrative/free test for any case of contradictory information. If information appears in only free text or click bubble it should be considered present or absent as reported. Please contact note verse writer for clarifications of clinical information or contradictory information. MDM is a brief summary, contradictory or erroneous seeming information should be clarified and full note should be reviewed. Vital Signs: Vital signs: Vital Signs Temperature 97.2 F L 06/08/21 20:19 Pulse Rate 88 06/08/21 22:19 Respiratory Rate 16 06/08/21 22:13 Blood Pressure 151/85 06/08/21 21:36 Pulse Oximetry 98 06/08/21 22:13 MDM - SOB/Dyspnea Medical Decision Making 66-year-old lady with history of asthma presenting with likely viral symptoms. Symptom treatment administered. Handed off pending completion of viral studies and reassessment of patient condition. 66 year old female with an asthma history checked out to me by doctor Michael at shift change. This lady has been wheezing, shortness of breath, and generally weak. She has leukopenia with a white blood cell count of 2.2, but she is not critically neutropenic. Her other labs are not terribly remarkable. Chest X ray is negative for infiltrate. Viral swab is positive for influenza a . she is out of the Tamiflu treatment window, as she has had symptoms for five days. Since she is wheezing, steroids will be provided, as well as nebulizer treatments, as she is out of them at home. Warning signs for return are given. Her pulse ox has remained normal on room air. Medical Records I reviewed the patient's medical records. Lab Data I reviewed the patient's lab results. : 06/08/21 21:10 06/08/21 21:10 Labs/Radiology: Radiology Impressions Chest X-Ray 06/08/21 21:18 IMPRESSION: There are no acute chest findings. Laboratory Results WBC 2.2 10^3/uL (4.0-10.0) L 06/08/21 21:10 RBC 4.49 10^6/uL (4.1-5.3) 06/08/21 21:10 Hgb 12.7 g/dL (11.5-15.3) 06/08/21 21:10 Hct 39.0 % (37.0-47.0) 06/08/21 21:10 MCV 86.9 fl (81-99) 06/08/21 21:10 MCH 28.3 pg (28.0-34.0) 06/08/21 21:10 MCHC 32.6 g/dL (30.0-36.0) 06/08/21 21:10 RDW 13.1 % (12.1-15.1) 06/08/21 21:10 Plt Count 169 10^3/cmm (130-400) 06/08/21 21:10 MPV 9.7 fL (7.4-10.4) 06/08/21 21:10 Neut % (Auto) 42.6 % 06/08/21 21:10 Lymph % (Auto) 39.5 % 06/08/21 21:10 [place] % (Auto) 16.4 % 06/08/21 21:10 Eos % (Auto) 0.5 % 06/08/21 21:10 Baso % (Auto) 0.5 % 06/08/21 21:10 Neut # (Auto) 0.94 10^3/uL (1.8-7.7) L* 06/08/21 21:10 Lymph # (Auto) 0.9 10^3/uL (0.8-4.8) 06/08/21 21:10 [place] # (Auto) 0.4 10^3/uL (0.2-0.9) 06/08/21 21:10 Eos # (Auto) 0.0 10^3/uL (0.0-0.8) 06/08/21 21:10 Baso # (Auto) 0.0 10^3/uL (0.0-0.1) 06/08/21 21:10 Nucleated RBC % (auto) 0 % 06/08/21 21:10 Nucleated RBCs # 0.0 /100WBC 06/08/21 21:10 Sodium 134 mmol/L (136-145) L 06/08/21 21:10 Potassium 3.8 mmol/L (3.5-5.1) 06/08/21 21:10 Chloride 100 mmol/L (98-107) 06/08/21 21:10 Carbon Dioxide 23 mmol/L (22-29) 06/08/21 21:10 Anion Gap 14.8 (5-19) 06/08/21 21:10 BUN 9 mg/dL (8-23) 06/08/21 21:10 Creatinine 0.8 mg/dL (0.5-0.9) 06/08/21 21:10 GFR Calculation 72.0 mL/min (90-130) L 06/08/21 21:10 Glucose 87 mg/dL (65-115) 06/08/21 21:10 Calculated Osmolality 276 mOsm/kg (285-295) L 06/08/21 21:10 Calcium 8.9 mg/dL (8.5-10.5) 06/08/21 21:10 Total Bilirubin 0.3 mg/dL (0.15-1.2) 06/08/21 21:10 AST 18 U/L (0-32) 06/08/21 21:10 ALT 13 U/L (0-33) 06/08/21 21:10 Alkaline Phosphatase 77 IU/L (35-105) 06/08/21 21:10 Troponin T Baseline 7 ng/L (0-10) 06/08/21 21:10 Troponin T 120 Minute 8.21 ng/L (0-10) 06/08/21 23:15 Delta Troponin T Not Reportable 06/08/21 23:15 C-Reactive Protein 5.5 mg/L (0.0-4.9) H 06/08/21 21:10 NT-Pro-B Natriuret Pep 69 pg/mL (0-125) 06/08/21 21:10 Total Protein 7.8 g/dL (6.6-8.7) 06/08/21 21:10 Albumin 4.1 g/dL (3.5-5.2) 06/08/21 21:10 Globulin 3.7 g/dL (1.3-4.6) 06/08/21 21:10 Procalcitonin 0.04 ng/mL (0-0.5) 06/08/21 21:10 Nasal Influ A H1 2009 PCR Not detected (NOT DETECT) 06/08/21 23:53 Coronavirus 229E (PCR) Not detected (NOT DETECT) 06/08/21 21:52 Influenza A (H1) PCR Not detected (NOT DETECT) 06/08/21 23:53 Influenza A (H3) PCR Detected (NOT DETECT) A 06/08/21 23:53 Influenza Type A (PCR) Detected (NOT DETECT) A 06/08/21 23:53 Influenza Type B (PCR) Not detected (NOT DETECT) 06/08/21 23:53 SARS-CoV-2 (PCR) Not detected (NOT DETECT) 06/08/21 21:52 Discharge Plan Discharge Patient Disposition: Home Clinical Impression: Influenza A, Bronchitis Condition: Stable Prescriptions: New Medrol (Silvano) 4 mg tablets,dose pack See Rx Instructions .ROUTE .COMPLEX Qty: 21 0RF Rx Instructions: orally per package directions Continued albuterol sulfate 2.5 mg /3 mL (0.083 %) solution for nebulization 2.5 mg INHALATION QID PRN (Reason: shortness of breath or wheezing) Qty: 75 2RF Rx Instructions: refill request No Action alendronate [Fosamax] 70 mg tablet 70 mg PO .WEEKLY Qty: 5 3RF Rx Instructions: Take one tablet by mouth weekly. pantoprazole [Protonix] 40 mg tablet,delayed release (DR/EC) 40 mg PO BID Qty: 60 2RF sertraline 50 mg tablet See Rx Instructions .ROUTE .COMPLEX Qty: 90 0RF Dose Instruction: TAKE 1 TABLET BY MOUTH EVERY 24 HOURS Rx Instructions: TAKE 1 TABLET BY MOUTH EVERY 24 HOURS albuterol sulfate [ProAir HFA] 90 mcg/actuation HFA aerosol inhaler 1 puff INHALATION QID PRN (Reason: shortness of breath or wheezing) 30 Days Qty: 6.7 2RF fluticasone propion-salmeterol [Advair Diskus] 250-50 mcg/dose blister with device 1 inh inhalation BID Qty: 60 5RF Discharge Orders: Discharge ED (Routine); Ordered 06/09/21 Ordered By: Paramjit Concepcion Referrals: Nano Hdez MD [Primary Care Provider] - 4-7 days Patient Instructions: Influenza (ED) Activity Restrictions/Additional Instructions: Use your nebulizer machine every 4 hours while awake for the next 24 hours, then as needed. Medications as directed. Return for worsening shortness of breath despite treatment, inability to control fever, worsening pain, mental status problems, weakness, any other concerning symptoms. Coding Level of Care Code ED Lock Expert for Chg Fwd Documented by User: Paramjit Concepcion DO 06/09/21 15:04 HPI - SOB/Dyspnea General: Chief Complaint: Shortness of Breath/Dyspnea Stated Complaint: Blood H2o 61, Covid Symptoms Time Seen by Provider: 06/08/21 20:53 PFSH ED PFSH: Medical History Asthma Colorectal cancer Depression Diverticulosis Neuropathy of both feet Psychiatric care Rectal cancer Saline breast implant in situ Scoliosis Surgical History H/O ileostomy H/O: hysterectomy History of breast augmentation History of tonsillectomy Family History Father Cancer Atrial fibrillation Hypertension Mother Arterial stenosis Hyperlipidemia Hypertension Grandmother Diabetes Other Alzheimer disease Neuropathy Stroke Social History Alcohol intake: current Alcohol intake frequency: holidays/special occasions only Caregiver/support person: Yes Lives independently: Yes Household members: spouse Marital status: Current occupational status: [employer] Vital Signs: Vital signs: Vital Signs Temperature 97.2 F L 06/08/21 20:19 Pulse Rate 88 06/08/21 22:19 Respiratory Rate 16 06/08/21 22:13 Blood Pressure 151/85 06/08/21 21:36 Pulse Oximetry 98 06/08/21 22:13 MDM - SOB/Dyspnea Medical Decision Making 66 year old female with an asthma history checked out to me by doctor Michael at shift change. This lady has been wheezing, shortness of breath, and generally weak. She has leukopenia with a white blood cell count of 2.2, but she is not critically neutropenic. Her other labs are not terribly remarkable. Chest X ray is negative for infiltrate. Viral swab is positive for influenza a . she is out of the Tamiflu treatment window, as she has had symptoms for five days. Since she is wheezing, steroids will be provided, as well as nebulizer treatments, as she is out of them at home. Warning signs for return are given. Her pulse ox has remained normal on room air. Lab Data : 06/08/21 21:10 06/08/21 21:10 Labs/Radiology: Radiology Impressions Chest X-Ray 06/08/21 21:18 IMPRESSION: There are no acute chest findings. Laboratory Results WBC 2.2 10^3/uL (4.0-10.0) L 06/08/21 21:10 RBC 4.49 10^6/uL (4.1-5.3) 06/08/21 21:10 Hgb 12.7 g/dL (11.5-15.3) 06/08/21 21:10 Hct 39.0 % (37.0-47.0) 06/08/21 21:10 MCV 86.9 fl (81-99) 06/08/21 21:10 MCH 28.3 pg (28.0-34.0) 06/08/21 21:10 MCHC 32.6 g/dL (30.0-36.0) 06/08/21 21:10 RDW 13.1 % (12.1-15.1) 06/08/21 21:10 Plt Count 169 10^3/cmm (130-400) 06/08/21 21:10 MPV 9.7 fL (7.4-10.4) 06/08/21 21:10 Neut % (Auto) 42.6 % 06/08/21 21:10 Lymph % (Auto) 39.5 % 06/08/21 21:10 [place] % (Auto) 16.4 % 06/08/21 21:10 Eos % (Auto) 0.5 % 06/08/21 21:10 Baso % (Auto) 0.5 % 06/08/21 21:10 Neut # (Auto) 0.94 10^3/uL (1.8-7.7) L* 06/08/21 21:10 Lymph # (Auto) 0.9 10^3/uL (0.8-4.8) 06/08/21 21:10 [place] # (Auto) 0.4 10^3/uL (0.2-0.9) 06/08/21 21:10 Eos # (Auto) 0.0 10^3/uL (0.0-0.8) 06/08/21 21:10 Baso # (Auto) 0.0 10^3/uL (0.0-0.1) 06/08/21 21:10 Nucleated RBC % (auto) 0 % 06/08/21 21:10 Nucleated RBCs # 0.0 /100WBC 06/08/21 21:10 Sodium 134 mmol/L (136-145) L 06/08/21 21:10 Potassium 3.8 mmol/L (3.5-5.1) 06/08/21 21:10 Chloride 100 mmol/L (98-107) 06/08/21 21:10 Carbon Dioxide 23 mmol/L (22-29) 06/08/21 21:10 Anion Gap 14.8 (5-19) 06/08/21 21:10 BUN 9 mg/dL (8-23) 06/08/21 21:10 Creatinine 0.8 mg/dL (0.5-0.9) 06/08/21 21:10 GFR Calculation 72.0 mL/min (90-130) L 06/08/21 21:10 Glucose 87 mg/dL (65-115) 06/08/21 21:10 Calculated Osmolality 276 mOsm/kg (285-295) L 06/08/21 21:10 Calcium 8.9 mg/dL (8.5-10.5) 06/08/21 21:10 Total Bilirubin 0.3 mg/dL (0.15-1.2) 06/08/21 21:10 AST 18 U/L (0-32) 06/08/21 21:10 ALT 13 U/L (0-33) 06/08/21 21:10 Alkaline Phosphatase 77 IU/L (35-105) 06/08/21 21:10 Troponin T Baseline 7 ng/L (0-10) 06/08/21 21:10 Troponin T 120 Minute 8.21 ng/L (0-10) 06/08/21 23:15 Delta Troponin T Not Reportable 06/08/21 23:15 C-Reactive Protein 5.5 mg/L (0.0-4.9) H 06/08/21 21:10 NT-Pro-B Natriuret Pep 69 pg/mL (0-125) 06/08/21 21:10 Total Protein 7.8 g/dL (6.6-8.7) 06/08/21 21:10 Albumin 4.1 g/dL (3.5-5.2) 06/08/21 21:10 Globulin 3.7 g/dL (1.3-4.6) 06/08/21 21:10 Procalcitonin 0.04 ng/mL (0-0.5) 06/08/21 21:10 Nasal Influ A H1 2008 PCR Not detected (NOT DETECT) 06/08/21 23:53 Coronavirus 229E (PCR) Not detected (NOT DETECT) 06/08/21 21:52 Influenza A (H1) PCR Not detected (NOT DETECT) 06/08/21 23:53 Influenza A (H3) PCR Detected (NOT DETECT) A 06/08/21 23:53 Influenza Type A (PCR) Detected (NOT DETECT) A 06/08/21 23:53 Influenza Type B (PCR) Not detected (NOT DETECT) 06/08/21 23:53 SARS-CoV-2 (PCR) Not detected (NOT DETECT) 06/08/21 21:52 Discharge Plan Discharge Patient Disposition: Home Clinical Impression: Influenza A, Bronchitis Condition: Stable Prescriptions: New Medrol (Silvano) 4 mg tablets,dose pack See Rx Instructions .ROUTE .COMPLEX Qty: 21 0RF Rx Instructions: orally per package directions Continued albuterol sulfate 2.5 mg /3 mL (0.083 %) solution for nebulization 2.5 mg INHALATION QID PRN (Reason: shortness of breath or wheezing) Qty: 75 2RF Rx Instructions: refill request No Action alendronate [Fosamax] 70 mg tablet 70 mg PO .WEEKLY Qty: 5 3RF Rx Instructions: Take one tablet by mouth weekly. pantoprazole [Protonix] 40 mg tablet,delayed release (DR/EC) 40 mg PO BID Qty: 60 2RF sertraline 50 mg tablet See Rx Instructions .ROUTE .COMPLEX Qty: 90 0RF Dose Instruction: TAKE 1 TABLET BY MOUTH EVERY 24 HOURS Rx Instructions: TAKE 1 TABLET BY MOUTH EVERY 24 HOURS albuterol sulfate [ProAir HFA] 90 mcg/actuation HFA aerosol inhaler 1 puff INHALATION QID PRN (Reason: shortness of breath or wheezing) 30 Days Qty: 6.7 2RF fluticasone propion-salmeterol [Advair Diskus] 250-50 mcg/dose blister with device 1 inh inhalation BID Qty: 60 5RF Discharge Orders: Discharge ED (Routine); Ordered 06/09/21 Ordered By: Paramjit Concepcion Referrals: Nano Hdez MD [Primary Care Provider] - 4-7 days Patient Instructions: Influenza (ED) Activity Restrictions/Additional Instructions: Use your nebulizer machine every 4 hours while awake for the next 24 hours, then as needed. Medications as directed. Return for worsening shortness of breath despite treatment, inability to control fever, worsening pain, mental status problems, weakness, any other concerning symptoms. Coding Level of Care Code ED Lock Expert for Ciarra Hernandez
[2021-06-08 21:03] VITALS: BP 154/88; PULSE 87; RESP 20; O2SAT 95
--- NOTE | 2021-06-08 21:18 | XRR_ITS ---
PROCEDURE INFORMATION: Exam: XR Chest Exam date and time: 06/08/2021 9:25 PM Age: 66 years old Clinical indication: Dyspnea; Additional info: SOB TECHNIQUE: Imaging protocol: XR of the chest. Views: 1 view. COMPARISON: CT Chest/Abdomen/Pelvis w IV* 12/28/2018 1:15 PM FINDINGS: Lungs: There is a background of mild emphysematous change. Pleural spaces: Unremarkable. No pleural effusion. No pneumothorax. Heart/Mediastinum: Unremarkable. No cardiomegaly. Bones/joints: Unremarkable. XR/XR chest 1V portable [id number] IMPRESSION: There are no acute chest findings.
--- NOTE | 2021-06-08 21:18 | ECG_ITS ---
[facility] Test Date: 2021-06-08 Pat Name: Darlene Stoddard Department: Room: Gender: Female Dairy Associate: : 1955 Requested By: Isael Rodriguez Order Number: [id number] Sharita MD: Endy Hogan M.D. Measurements Intervals [place] Rate: 90 P: 9 IN: 138 QRS: 11 QRSD: 102 T: 21 QT: 355 QTc: 435 Interpretive Statements SINUS RHYTHM No previous ECG available for comparison Electronically Signed On 06-09-2021 9:37:34 CDT by Endy Hogan M.D. [id number]
[2021-06-08 21:34] LABS: Basophils % 0.5 %; Eosinophils % 0.5 %; Hemoglobin 12.7 g/dL (11.5-15.3); Lymphocytes # 0.9 10^3/uL (0.8-4.8); Lymphocytes % 39.5 %; Mean Corpuscular HGB Conc 32.6 g/dL (30.0-36.0); Mean Corpuscular Hemoglobin 28.3 pg (28.0-34.0); Mean Corpuscular Volume 86.9 fl (81-99); Mean Platelet Volume 9.7 fL (7.4-10.4); Monocytes # 0.4 10^3/uL (0.2-0.9); Monocytes % 16.4 %; Neutrophils % 42.6 %; Nucleated Red Blood Cells % 0 %; Platelet Count 169 10^3/cmm (130-400); Red Blood Count 4.49 10^6/uL (4.1-5.3); Red Cell Distribution Width 13.1 % (12.1-15.1); White Blood Count 2.2 10^3/uL (4.0-10.0)
[2021-06-08 21:36] VITALS: BP 151/85; PULSE 87; RESP 20; O2SAT 96
[2021-06-08 21:40] LABS: Neutrophils # 0.94 10^3/uL (1.8-7.7)
[2021-06-08] MEDS: acetaminophen 1,000 MG/100 ML PIGGYBACK 400 MG IV (21:47)
[2021-06-08] MEDS: lactated ringers 1,000 ML 999 ML IV (21:47)
[2021-06-08] MEDS: ketorolac 30 mg/mL INJ 15 MG IVP (21:47)
[2021-06-08 21:55] LABS: Troponin(5th) Baseline 7 ng/L (0-10)
[2021-06-08 22:05] LABS: Alanine Aminotransferase 13 U/L (0-33); Albumin Level 4.1 g/dL (3.5-5.2); Alkaline Phosphatase 77 IU/L (35-105); Anion Gap 14.8 (5-19); Aspartate Amino Transferase 18 U/L (0-32); Blood Urea Nitrogen 9 mg/dL (8-23); Calcium 8.9 mg/dL (8.5-10.5); Carbon Dioxide 23 mmol/L (22-29); Chloride 100 mmol/L (98-107); Globulin 3.7 g/dL (1.3-4.6); Glucose 87 mg/dL (65-115); NT Pro B Type Natriuretic Pept 69 pg/mL (0-125); Osmolality Calculated 276 mOsm/kg (285-295); Potassium 3.8 mmol/L (3.5-5.1); Sodium 134 mmol/L (136-145); Total Bilirubin 0.3 mg/dL (0.15-1.2); Total Protein 7.8 g/dL (6.6-8.7)
[2021-06-08] MEDS: ipratropium-albuterol 3 mL Neb INHALATION (22:12)
[2021-06-08 22:13] VITALS: PULSE 82; RESP 16; O2SAT 98
[2021-06-08 22:19] VITALS: PULSE 88
[2021-06-08 22:51] LABS: C Reactive Protein 5.5 mg/L (0.0-4.9)
[2021-06-08 22:59] LABS: Procalcitonin 0.04 ng/mL (0-0.5)
--- NOTE | 2021-06-08 23:18 | ECG_ITS ---
[facility] Test Date: 2021-06-08 Pat Name: Darlene Stoddard Department: Room: Gender: Female Admissions Consultant: : 1955 Requested By: Isael Rodriguez Order Number: [id number] Sharita MD: Endy Hogan M.D. Measurements Intervals [place] Rate: 92 P: 25 [place]: 143 QRS: 4 QRSD: 105 T: 5 QT: 380 QTc: 472 Interpretive Statements SINUS RHYTHM Compared to ECG 06/08/2021 21:49:02 No significant changes Electronically Signed On 06-09-2021 9:43:51 CDT by Endy Hogan M.D. [id number]
[2021-06-08 23:43] LABS: Troponin 5 2HR 8.21 ng/L (0-10)
[2021-06-08 23:45] LABS: Adenovirus Not Detected (NOT DETECT); Chlamydia Pneumoniae Not Detected (NOT DETECT); Coronavirus 229E,HKU1,NL63,OC4 Not Detected (NOT DETECT); Human Metapneumovirus Not Detected (NOT DETECT); Human Rhinovirus/Enterovirus Not Detected (NOT DETECT); Influenza A Detected (NOT DETECT); Influenza A H1 Not Detected (NOT DETECT); Influenza A H1-2009 Not Detected (NOT DETECT); Influenza A H3 Detected (NOT DETECT); Influenza B Not Detected (NOT DETECT); Mycoplasma Pneumoniae Not Detected (NOT DETECT); Parainfluenza Virus Type 1 Not Detected (NOT DETECT); Parainfluenza Virus Type 2 Not Detected (NOT DETECT); Parainfluenza Virus Type 3 Not Detected (NOT DETECT); Parainfluenza Virus Type 4 Not Detected (NOT DETECT); Respiratory Syncytial Virus A Not Detected (NOT DETECT); Respiratory Syncytial Virus B Not Detected (NOT DETECT); SARS-COV-2 Not Detected (NOT DETECT)
[2021-06-08 23:53] LABS: Influenza A Detected (NOT DETECT); Influenza A H1 Not Detected (NOT DETECT); Influenza A H1-2009 Not Detected (NOT DETECT); Influenza A H3 Detected (NOT DETECT); Influenza B Not Detected (NOT DETECT); Results from Genmark
--- NOTE | 2021-06-09 01:11 | PC.NURSE ---
pt took off all bp cuff and pulse ox after 2nd set
== END 2021-06-09 01:15 | disposition home or self-care (01) ==
PROVIDERS: Emergency Medicine; Emergency Provider Emergency Medicine; PCP Family Medicine
DX: J10.1 Influenza due to other identified influenza virus with other respiratory manifestations (principal); J45.909 Unspecified asthma, uncomplicated; Z20.822 Contact with and (suspected) exposure to COVID-19; Z85.038 Personal history of other malignant neoplasm of large intestine; Z90.49 Acquired absence of other specified parts of digestive tract
CPT/HCPCS: 36415; 71045; 80053; 83880; 84145; 84484; 85025; 86140; 87631; 87635; 93005; 94640; 96361; 96374; 96375; 99284; J1885; J2930

== ENCOUNTER 2021-06-19 08:53 | Outpatient (CLI) | payer MEDICARE, SELFPAY ==
--- NOTE | 2021-06-19 09:03 | MM_ITS ---
WS: [id number] Bilateral screening 3D tomosynthesis digital mammogram, 06/19/2021 Clinical Data: SCREENING Comparison: 03/24/2019, 12/29/2017, 05/26/2016. Findings: The breast parenchymal pattern shows fibroglandular tissue No spiculated masses or clustered calcific ations are seen. There are no secondary signs of carcinoma. The bilateral augmentation mammoplasty im plants remain intact. MM/[place] [id number] Impression: 1. Negative bilateral mammogram unchanged. 2. Recommend annual screening mammograms. BIRADS: 2-Benign FOLLOW UP: 1 Year Follow-up The CAD aircraft shipping checker was used.
== END 2021-06-19 08:54 | disposition home or self-care (01) ==
LOC: RAD 08:56
PROVIDERS: PCP Family Medicine; Visit Provider Internal Medicine Hematology & Oncology
DX: Z12.31 Encounter for screening mammogram for malignant neoplasm of breast (principal)
CPT/HCPCS: 77063; 77067

== ENCOUNTER 2021-06-26 10:07 | Outpatient (CLI) | payer MEDICARE, SELFPAY ==
[2021-06-26 10:39] LABS: Basophils % 0.5 %; Eosinophils # 0.1 10^3/uL (0.0-0.8); Eosinophils % 1.9 %; Hematocrit 37.1 % (37.0-47.0); Hemoglobin 12.2 g/dL (11.5-15.3); Lymphocytes # 1.5 10^3/uL (0.8-4.8); Lymphocytes % 39.2 %; Mean Corpuscular HGB Conc 32.9 g/dL (30.0-36.0); Mean Corpuscular Hemoglobin 28.2 pg (28.0-34.0); Mean Corpuscular Volume 85.7 fl (81-99); Mean Platelet Volume 8.9 fL (7.4-10.4); Monocytes # 0.4 10^3/uL (0.2-0.9); Monocytes % 11.6 %; Neutrophils # 1.77 10^3/uL (1.8-7.7); Neutrophils % 46.8 %; Nucleated Red Blood Cells % 0 %; Platelet Count 213 10^3/cmm (130-400); Red Blood Count 4.33 10^6/uL (4.1-5.3); Red Cell Distribution Width 13.2 % (12.1-15.1); White Blood Count 3.8 10^3/uL (4.0-10.0)
[2021-06-26 11:06] LABS: Alanine Aminotransferase 11 U/L (0-33); Albumin Level 3.9 g/dL (3.5-5.2); Alkaline Phosphatase 75 IU/L (35-105); Anion Gap 14.9 (5-19); Aspartate Amino Transferase 12 U/L (0-32); Blood Urea Nitrogen 11 mg/dL (8-23); Calcium 9.2 mg/dL (8.5-10.5); Carbon Dioxide 23 mmol/L (22-29); Chloride 107 mmol/L (98-107); Globulin 3.6 g/dL (1.3-4.6); Glucose 96 mg/dL (65-115); Osmolality Calculated 291 mOsm/kg (285-295); Potassium 3.9 mmol/L (3.5-5.1); Sodium 141 mmol/L (136-145); Total Bilirubin 0.5 mg/dL (0.15-1.2); Total Protein 7.5 g/dL (6.6-8.7)
--- NOTE | 2021-06-27 09:06 | ONC FU_ITS ---
Dr. Syed follow up note Patient: Darlene Stoddard Unit #: [id number]: 1955 Dicatated By: Stacey Syed M.D.Date of Visit:Jun 26, 2021 Onc Med Follow-up/Prog Note History of Present Illness: Mrs. Darlene Stoddard Is a 66-year-old female with recent history of bowel changes including increased frequency and also noted blood in her stool for which she was referred to Dr. Zazueta for evaluation on 01/12/2018 she underwent colonoscopy which showed malignant appearing ductal mass at 10 cm and a biopsies were obtained which confirmed adenocarcinoma and subsequently underwent CT scan of abdomen pelvis which showed supra levator rectosigmoid colon wall lesion measuring approximately 4.2 cm with a mild posterior wall perirectal fat induration. Left iliac sclerosis with ill-defined zone transition infectious process or neoplastic process her differential Right posterior lower lobe patchy groundglass opacity probably inflammatory and then on 01/27/2018 underwent MRI of pelvis showed rectal mass arising from the mid to upper portion of rectum along with the right lateral aspect of rectum and right ostiomeatal lateral aspect showed mild retraction within the adjacent perirectal fat suspicious for invasion through the rectal wall. Multiple enlarged perirectal as well as a dominant enlarged upper presacral lymph node are noted. Patient was referred to Dr. Esquivel who saw her on 01/25/2018 and recommended neoadjuvant chemoradiation followed by surgery. Started on combined chemoradiation with oral Xeloda on 02/18/2018 Which she concluded on 03/31/2018, subsequently underwent laparoscopic rectosigmoid resection and temporary ileostomy on 05/25/2018, final pathology showed clear margins T3 lesion and 0 out of 28 lymph node positive for metastatic disease. 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 used to resolve within a week. She states that after her last treatment show nevus over her legs were paralyzed . She states it felt like there were bees stinging her legs and her legs just wouldn't move. She states this lasted into the morning. It has not recurred. She had no one-sided weakness or numbness otherwise. She states that she had no speech changes she did not have any syncope or confusion. She also states that she's had right upper leg and hip pain for about 3 weeks that has gotten worse than its normal. She also states it radiates around to her lower back area. The back pain is more intermittent and goes from achy to shooting up her back. Chemotherapy was put on hold and She was referred to neurologist in [place], who evaluated her on 11/01/2018 MRI scan of the spine was done which showed no myelopathic cord signal abnormality in the thorax spinal cord. No bone metastases no compression fracture but mild to moderate neural foraminal stenosis at multiple levels and C-spine, MRI brain was unremarkable further testing with nerve conduction study lower extremity is under consideration. X-ray right hip done on 09/20/2018 showed normal right hip, dextro rotoscoliosis of lumbar spine. Mild spondylosis at L1-L2 Patient was referred to GI oncology at [facility] for second opinion regarding whether to continue her adjuvant chemotherapy with progressive peripheral neuropathy. Patient was seen by Dr. saldaña On 01/13/2019 as per her recommendation discontinue oxaliplatin because of progressive neuropathy but continue with Xeloda or 5-FU to complete 6 months of perioperative chemotherapy or discontinue chemotherapy at this time and then follow-up patient opted for second option e.g. discontinue chemotherapy. Also recommended bone scan for left iliac sclerotic lesion evaluation. she was referred to endocrinology for possible Paget's disease evaluation. Patient has seen endocrinology in [place] and workup is in progress to confirm the diagnosis.Patient did miss her follow-up appointment due to COVID-19, now planning to go back for evaluation Follow-up mammogram done on June 19, 2021 shows BI-RADS 2, benign Came for follow-up, denies any specific complaint except had episode of flu about 2 weeks ago and developed cough, shortness of breath and went to ER, as per patient she was diagnosed with flu and it was too late for Tamiflu so she was given hydration, steroids which she finished yesterday and felt better. She was also evaluated by endocrinology regarding her Paget disease underwent x-ray hip on March 26, 2021 which showed no radiographic findings to indicate Paget's disease of the pelvis she also had x-ray of skull done on same date which showed no evidence of Paget's disease, DEXA scan was done on March 26, 2021 showed osteoporosis in the lumbar spine, osteopenia in the femoral necks, as per patient she was started on treatment for osteoporosis. But patient's disease was not confirmed but endocrinology will continue to monitor. Patient denies any melena or hematochezia denies any hemoptysis or hematemesis denies any jaundice or abdominal pain denies any weight loss denies any generalized weakness and fatigue. Medications: Albuterol Sulfate Aerosol Powder, Breath Activated Inhalation PRN, Aspirin 81 1 Tablet (of 81 mg) Tablet, chewable Oral daily, Breo Ellipta 1 puff(s) (of 200-25 mcg/inh) Aerosol Powder, Breath Activated Inhalation daily, Pantoprazole Sodium 1 Tablet (of 40 mg) Tablet, enteric coated Oral daily, Zofran 1 Tablet (of 4 mg) Tablet Oral q 6 hours PRN, Zoloft 1 (50 mg) Tablet Oral daily Allergies: Codeine Sulfate and Erythromycin Base. Review of Systems: Review of Systems is not available for this patient. Vital Signs: Performed on Jun 26, 2021 11:40 Height - 68.00 in Weight - 141.2 lbs (LOW) BSA - 1.76 sq.m BMI - 21.47 Temperature - 97.4 F (LOW) Pulse - 84 /min Respiration - 18 /min BP - 151/75 mm(hg) (HIGH) O2 Sat - 99 % Pain - 0 Fatigue - 0 Performance Status: 0 - Fully active, able to carry on all predisease activities without restrictions. (ECOG) Physical Examination: ENMT - No mouth sores, no thrush, no jaundice, Respiratory - Lungs are clear to auscultation, Cardiovascular - Regular rate and rhythm of heart, Abdomen - Soft, bowel sounds present, Extremities - No visible edema. Lab/Imaging: Most recent lab results are not available for this patient. Impression: Infiltrating adenocarcinoma of rectum per colonoscopy done on 01/12/2018 CT scan of abdomen pelvis showed 4.2 cm supralevator rectosigmoid colon wall lesion. With a mild right lateral and posterior wall perirectal fat induration tumoral extension not excluded. MRI scan of pelvis done on 01/27/2018 showed mass in mid to upper portion of rectum. With area of mild retraction within the adjacent perirectal fat suspicious for invasion through the rectal wall. Multiple enlarged perirectal as well as a dominant enlarged upper presacral lymph node noted cT3,Nx,Mx Started on neoadjuvant combined chemoradiation with oral Xeloda 1500 mg by mouth twice a day Thursday through Thursday concurrent with radiation therapy on 02/18/2018 which she concluded on 03/31/2018 Subsequently underwent laparoscopic rectosigmoid resection with end to end anastomosis and temporary ileostomy bag on 05/25/2018. Final pathology report showed tumor size 1.3 x 2 x 0.2 cm, adenocarcinoma, moderately differentiated, extends through muscularis propria into perirectal adipose tissue pT3, 0 out of 28 lymph nodes showed metastatic disease N0, stage pII Being high risk adjuvant chemotherapy with FOLFOX was recommended.Started on adjuvant chemotherapy with FOLFOX ???12 on 06/30/2018^ ]evaluated by endocrinology regarding her Paget disease underwent x-ray hip on March 26, 2021 which showed no radiographic findings to indicate Paget's disease of the pelvis she also had x-ray of skull done on same date which showed no evidence of Paget's disease, DEXA scan was done on March 26, 2021 showed osteoporosis in the lumbar spine, osteopenia in the femoral necks, as per patient she was started on treatment for osteoporosis. But patient's disease was not confirmed but endocrinology will continue to monitor. Plan: Discussed with patient regarding her labs white blood count 3.8 hemoglobin 12.2 hematocrit 37.1 platelets 213,000 absolute neutrophil count 1770 CMP within normal limits Clinically, patient is doing well with no new signs symptoms suggestive of recurrence of disease her lab work-up is within normal range except isolated but mild leukopenia, etiology could be recent episode of type A flu. But no signs symptom suggestive of acute infection. Patient has history of Paget disease, now being evaluated by endocrinology, work-up including x-rays skull, X-ray hips did not show radiographic findings suggestive of Paget's disease. But her DEXA scan shows osteoporotic finding and lumbar spine and osteopenic findings in bilateral femoral neck. She was started on therapy for osteoporosis. Tolerating well, she also had follow-up mammogram which shows no abnormality. She will return to clinic in 6 months with CBC CMP and CEA, patient was advised to call in case she has any episode of melena hematochezia or jaundice. Signed By: Stacey Syed M.D. <<Signature on File>>
== END 2021-06-26 10:08 | disposition home or self-care (01) ==
PROVIDERS: PCP Family Medicine; Visit Provider Internal Medicine Hematology & Oncology
DX: C19 Malignant neoplasm of rectosigmoid junction (principal); M81.8 Other osteoporosis without current pathological fracture; M85.859 Other specified disorders of bone density and structure, unspecified thigh
CPT/HCPCS: 36415; 80053; 85025; 99214

== ENCOUNTER → 2021-09-26 15:49 | Outpatient (BNVA) | payer MEDICARE, SELFPAY | PROVIDERS: PCP Family Medicine; Visit Provider Family Medicine | DX: M17.12 Unilateral primary osteoarthritis, left knee (principal); M25.562 Pain in left knee | CPT/HCPCS: 73562 ==

== ENCOUNTER 2022-01-08 12:25 | Oncology outpatient (recurring) (ONCR) | payer MEDICARE, SELFPAY ==
[2022-01-08 12:50] LABS: Basophils % 0.6 %; Eosinophils # 0.1 10^3/uL (0.0-0.8); Eosinophils % 2.5 %; Hematocrit 40.4 % (37.0-47.0); Lymphocytes # 1.5 10^3/uL (0.8-4.8); Lymphocytes % 29.5 %; Mean Corpuscular HGB Conc 32.2 g/dL (30.0-36.0); Mean Corpuscular Hemoglobin 28.2 pg (28.0-34.0); Mean Corpuscular Volume 87.6 fl (81-99); Mean Platelet Volume 8.6 fL (7.4-10.4); Monocytes # 0.5 10^3/uL (0.2-0.9); Monocytes % 10.6 %; Neutrophils # 2.87 10^3/uL (1.8-7.7); Neutrophils % 56.2 %; Nucleated Red Blood Cells % 0 %; Platelet Count 273 10^3/cmm (130-400); Red Blood Count 4.61 10^6/uL (4.1-5.3); Red Cell Distribution Width 12.9 % (12.1-15.1); White Blood Count 5.1 10^3/uL (4.0-10.0)
[2022-01-08 13:15] LABS: Alanine Aminotransferase 16 U/L (0-33); Albumin Level 4.2 g/dL (3.5-5.2); Alkaline Phosphatase 96 U/L (35-105); Anion Gap 14.7 (5-19); Aspartate Amino Transferase 16 U/L (0-32); Blood Urea Nitrogen 11 mg/dL (8-23); Calcium 9.3 mg/dL (8.5-10.5); Carbon Dioxide 26 mmol/L (22-29); Chloride 101 mmol/L (98-107); Globulin 3.6 g/dL (1.3-4.6); Glucose 110 mg/dL (65-115); Osmolality Calculated 286 mOsm/kg (285-295); Potassium 3.7 mmol/L (3.5-5.1); Sodium 138 mmol/L (136-145); Total Bilirubin 0.2 mg/dL (0.15-1.2); Total Protein 7.8 g/dL (6.6-8.7)
[2022-01-08 14:49] LABS: Carcinoembryonic Antigen 0.7 ng/mL (0.0-4.7)
== END 2022-02-05 23:59 ==
PROVIDERS: PCP Family Medicine; Visit Provider Internal Medicine Hematology & Oncology
DX: Z08 Encounter for follow-up examination after completed treatment for malignant neoplasm (principal); Z85.048 Personal history of other malignant neoplasm of rectum, rectosigmoid junction, and anus; Z92.21 Personal history of antineoplastic chemotherapy; Z92.3 Personal history of irradiation
CPT/HCPCS: 80053; 82378; 85025; 99213; 99214

== ENCOUNTER → 2022-01-16 11:15 | Outpatient (BNVA) | payer MEDICARE, SELFPAY | PROVIDERS: PCP Family Medicine; Visit Provider Family Medicine | DX: E55.9 Vitamin D deficiency, unspecified (principal); R13.10 Dysphagia, unspecified; Z13.6 Encounter for screening for cardiovascular disorders; M88.9 Osteitis deformans of unspecified bone; Z12.31 Encounter for screening mammogram for malignant neoplasm of breast; Z23 Encounter for immunization; Z00.00 Encounter for general adult medical examination without abnormal findings | CPT/HCPCS: 80061; 82306; 83721; 84443 ==

== ENCOUNTER → 2022-04-15 09:47 | Outpatient (BNVA) | payer BC, SELFPAY | PROVIDERS: PCP Family Medicine; Visit Provider Nurse Practitioner Family | DX: S02.2XXA Fracture of nasal bones, initial encounter for closed fracture (principal); X58.XXXA Exposure to other specified factors, initial encounter | CPT/HCPCS: 70150 ==

== ENCOUNTER 2022-07-16 12:44 | Oncology outpatient (recurring) (ONCR) | payer MEDICARE, SELFPAY | END 2022-08-06 23:59 | disposition home or self-care (01) | PROVIDERS: PCP Family Medicine; Visit Provider Internal Medicine Hematology & Oncology | DX: Z08 Encounter for follow-up examination after completed treatment for malignant neoplasm (principal); Z85.048 Personal history of other malignant neoplasm of rectum, rectosigmoid junction, and anus; Z92.21 Personal history of antineoplastic chemotherapy; Z92.3 Personal history of irradiation | CPT/HCPCS: 36415; 80053; 82378; 85025; 99214 ==

== ENCOUNTER 2022-07-21 14:32 | Outpatient (CLI) | payer MEDICARE, SELFPAY ==
--- NOTE | 2022-07-21 14:49 | MM_ITS ---
WS: [id number] BILATERAL 3D TOMOSYNTHESIS DIGITAL SCREENING MAMMOGRAPHY WITH CAD CLINICAL INFORMATION: annual HISTORY: Screening mammogram. No current complaints. COMPARISON: June 19, 2021 TECHNIQUE: Bilateral CC and MLO views. FINDINGS: Bilateral breast implants appear intact. Scattered fibroglandular densities bilaterally. No suspicious focal mass, asymmetry, calcifications, or architectural distortion. No evidence of malignancy. Incidental punctate and lucent centered calci fications. MM/[place] [id number] IMPRESSION: BI-RADS: 2-Benign FOLLOW UP: 1 Year Follow-up Recommend return to annual screening mammography.
== END 2022-07-21 14:33 | disposition home or self-care (01) ==
PROVIDERS: PCP Family Medicine; Visit Provider Family Medicine
DX: Z12.31 Encounter for screening mammogram for malignant neoplasm of breast (principal)
CPT/HCPCS: 77063; 77067

== ENCOUNTER 2023-01-07 10:58 | Outpatient (CLI) | payer MEDICARE, SELFPAY ==
[2023-01-07] MEDS: iohexol 350 mg/mL 500 mL Btl (per mL) PO (11:16)
[2023-01-07 11:53] LABS: Blood Urea Nitrogen 10 mg/dL (8-23)
--- NOTE | 2023-01-07 12:00 | CTR_ITS ---
PROCEDURE INFORMATION: Exam: CT Chest With Contrast; Diagnostic Exam date and time: 01/07/2023 12:05 PM Age: 67 years old Clinical indication: Colorectal cancer; Follow-up oncological assessment; Prior surgery; Surgery date: 6+ months; Surgery type: Colon, hyst, port in and out; Additional info: Follow up TECHNIQUE: Imaging protocol: Diagnostic computed tomography of the chest with contrast. Radiation optimization: All CT scans at this facility use at least one of these dose optimization techniques: automated exposure control; mA and/or kV adjustment per patient size (includes targeted exams where dose is matched to clinical indication); or iterative reconstruction. Contrast material: OMNI 350; Contrast volume: 95 ml; Contrast route: INTRAVENOUS (IV); REPORTING DATA: Count of CT and Cardiac NM exams in prior 12 months: This patient has received 0 known CTs and 0 known cardiac nuclear medicine studies in the 12 months prior to the current study. COMPARISON: CT chest abdpel w/*[id number] 12/28/2018 1:15 PM RADIATION DOSE METRICS: Total DLP (mGy-cm): 697.43 FINDINGS: Lungs: No pulmonary consolidation. New pulmonary nodule in the right lower lobe measuring 4.7 mm (image 25). New pulmonary micronodule in the right middle lobe measuring 3.8 mm (image 41). A pulmonary micronodule in the left lower lobe measures 2.7 mm; previously 1.9 mm (image 40). Unchanged pulmonary micronodule in the left upper lobe measuring 1.9 mm (image 25). There is mild scarring in the chest bilaterally. Pleural spaces: No pleural effusion. No pneumothorax. Heart: No pericardial effusion. Lymph nodes: A precarinal lymph node measures 1.1 x 1.6 cm; increased from prior. A right hilar lymph node measures 1.2 x 1.1 cm; similar to prior. Vasculature: Aberrant right subclavian artery. No thoracic aortic aneurysm. No thoracic aortic dissection. No main or central pulmonary embolus. Diaphragm: Small fat containing diaphragmatic hernia on the right. No hiatal hernia. Bones/joints: There are cervical ribs bilaterally that are fused with the 1st ribs. No acute fracture is seen. Soft tissues: Bilateral breast implants are noted. PROCEDURE INFORMATION: Exam: CT Abdomen And Pelvis With Contrast Exam date and time: 01/07/2023 12:05 PM Age: 67 years old Clinical indication: Colorectal cancer; Follow-up oncological assessment; Prior surgery; Surgery date: 6+ months; Surgery type: Colon, hyst, port in and out; Additional info: Follow up TECHNIQUE: Imaging protocol: Computed tomography of the abdomen and pelvis with contrast. Radiation optimization: All CT scans at this facility use at least one of these dose optimization techniques: automated exposure control; mA and/or kV adjustment per patient size (includes targeted exams where dose is matched to clinical indication); or iterative reconstruction. Contrast material: OMNI 350; Contrast volume: 95 ml; Contrast route: INTRAVENOUS (IV); REPORTING DATA: Count of CT and Cardiac NM exams in prior 12 months: This patient has received 0 known CTs and 0 known cardiac nuclear medicine studies in the 12 months prior to the current study. COMPARISON: CT chest abdpel w/*[id number] 12/28/2018 1:15 PM RADIATION DOSE METRICS: Total DLP (mGy-cm): 697.43 FINDINGS: Liver: The liver is unremarkable. Gallbladder and bile ducts: The gallbladder is unremarkable. Pancreas: The pancreas is unremarkable. Spleen: The spleen is unremarkable. Adrenal glands: A low-attenuation nodule in the right adrenal gland is unchanged since 2019 measuring 1.7 cm. This likely represents a benign adrenal adenoma. Kidneys and ureters: The kidneys are unremarkable. Stomach and bowel: The stomach and small bowel are unremarkable. There has been prior partial colonic resection. Occasional colonic diverticula without evidence of acute diverticulitis. Appendix: The appendix is unremarkable. Intraperitoneal space: No free intraperitoneal air is seen. Vasculature: No abdominal aortic aneurysm. Lymph nodes: No retroperitoneal lymphadenopathy. Urinary bladder: The bladder is partially decompressed. Reproductive: Status post hysterectomy. 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 No acute fracture is seen. Soft tissues: Small fat containing inguinal hernias. Small fat containing umbilical hernia. CT/CT chest abdpel w/*[id number] IMPRESSION: 1. There are a couple new pulmonary nodules measuring up to 4.7 mm. A pulmonary nodule in the left lower lobe has increased slightly in size since 2019. [employer] society guidelines do not apply in the setting of malignancy. Recommend continued follow-up. 2. A precarinal lymph node appears increased in size from prior. A right hilar lymph node is similar to prior. 3. Aberrant right subclavian artery. IMPRESSION: 1. No definite evidence of metastatic disease in the abdomen/pelvis. 2. 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
[2023-01-07] MEDS: iohexol 350 mg/mL 500 mL Btl (per mL) IV (12:08)
== END 2023-01-07 10:59 | disposition home or self-care (01) ==
PROVIDERS: PCP Family Medicine; Visit Provider Internal Medicine Medical Oncology
DX: Z85.048 Personal history of other malignant neoplasm of rectum, rectosigmoid junction, and anus (principal); R91.8 Other nonspecific abnormal finding of lung field
CPT/HCPCS: 71260; 74177; 82565; 84520; Q9967

== ENCOUNTER → 2023-01-13 11:58 | Outpatient (BNVA) | payer MEDICARE, SELFPAY | PROVIDERS: PCP Family Medicine; Visit Provider Family Medicine | DX: I10 Essential (primary) hypertension (principal); Z13.6 Encounter for screening for cardiovascular disorders; R13.10 Dysphagia, unspecified | CPT/HCPCS: 80053; 80061; 83735; 84443; 85025 ==

== ENCOUNTER 2023-02-03 14:18 | Outpatient (CLI) | payer MEDICARE, SELFPAY ==
--- NOTE | 2023-02-03 08:30 | PETR_ITS ---
PROCEDURE INFORMATION: Exam: PET/CT Skull Base to Mid-thigh Exam date and time: 02/03/2023 9:10 AM Age: 67 years old Clinical indication: Condition or disease; Primary cancer: Malignant neoplasm of rectosigmoid colon; Follow-up oncological assessment; Prior surgery; Surgery date: 6+ months; Surgery type: Colon, hyst, port; Additional info: Re staging LABS AND CLINICAL REPORTS: Glucose: 104 mg/dl Treatment strategy for malignancy (PET staging): Restaging (PS) TECHNIQUE: Imaging protocol: Following at least four-hour fasting and following the injection of radiopharmaceutical, low dose CT images were obtained. Then, PET images were obtained. Attenuation corrected images were constructed using the CT scan. Fused images of PET and CT were reviewed. The standardized uptake values (SUV) reported below are maximum values within a region of interest, expressed in gm/ml. Exam includes orbital meatal line to mid-thigh. Radiopharmaceutical: 11.68 mCi F-18 FDG (Fluorodeoxyglucose), IV. Time of imaging post radiopharmaceutical administration: 1 hour Injection site: Right antecubital vein COMPARISON: CT chest abdpel w/*[id number] 01/07/2023, CT abdomen pelvis 05/03/2018 and 01/14/2018 FINDINGS: Brain: Visualized brain has normal physiologic uptake. Pharynx: No abnormal uptake. Larynx: No abnormal uptake. Lungs, pleura and trachea: No abnormal uptake. Up to 0.5 cm ground-glass opacity nodules (in the superior segment of the right lower lobe on series 3, image 72, in the right middle lobe on image 88) are nonspecific. No pleural effusion. Heart: Normal physiologic uptake. There is no cardiomegaly. Mild coronary artery calcification is present. There is no pericardial effusion. Mediastinal space: No abnormal uptake. Liver: No abnormal uptake. Gallbladder and bile ducts: No abnormal uptake. No calcified gallstones. Pancreas: No abnormal uptake. Spleen: No abnormal uptake. No splenomegaly. Adrenal glands: No abnormal uptake. 1.6 x 1.3 cm right adrenal nodule with low density of 6 Hounsfield units compatible with benign adrenal cortical adenoma measured 1.4 x 1.1 cm on previous exams in 2018 and 2017. The left adrenal is normal. Kidneys and ureters: Normal physiologic uptake. No hydronephrosis. Stomach and bowel: No abnormal uptake. Unremarkable anastomosis in the lower rectum. Intraperitoneal and retroperitoneal spaces: No abnormal uptake. No ascites. Urinary bladder: Normal physiologic uptake. Reproductive: No abnormal uptake. The uterus is absent post surgically. Vasculature: No abnormal uptake. No aortic aneurysm.There is a normal variant of aberrant right subclavian artery. Lymph nodes: No abnormal uptake. No lymphadenopathy in the head, neck, chest, abdomen, pelvis, and extremities. Bones/joints: No abnormal uptake in the visualized axial and appendicular skeleton. There is scoliosis of the lumbar spine convex to the right centered at L2 level. Soft tissues: No abnormal uptake in the visualized head, neck, chest, abdomen, pelvis, and extremities. Bilateral breast implants are in place. [id number] IMPRESSION: No abnormal radiotracer uptake.
== END 2023-02-03 14:19 | disposition home or self-care (01) ==
LOC: RAD 14:18
PROVIDERS: PCP Family Medicine; Visit Provider Internal Medicine Medical Oncology
DX: C19 Malignant neoplasm of rectosigmoid junction (principal); Z98.890 Other specified postprocedural states
CPT/HCPCS: 78815; A9552

== ENCOUNTER 2023-02-16 12:35 | Oncology outpatient (recurring) (ONCR) | payer MEDICARE, SELFPAY ==
[2023-02-16 12:47] VITALS: BP 146/88; PULSE 77; RESP 16; TEMP 36.8; O2SAT 96
[2023-02-16 13:02] LABS: Basophils % 0.5 %; Eosinophils # 0.1 10^3/uL (0.0-0.8); Eosinophils % 1.6 %; Hematocrit 39.1 % (36-47); Lymphocytes # 1.4 10^3/uL (0.8-4.8); Lymphocytes % 31.9 %; Mean Corpuscular HGB Conc 33.5 g/dL (30-55); Mean Corpuscular Hemoglobin 28.9 pg (27-33); Mean Corpuscular Volume 86.1 fl (85-98); Mean Platelet Volume 8.9 fL (7.4-10.4); Monocytes # 0.4 10^3/uL (0.2-0.9); Monocytes % 8.4 %; Neutrophils # 2.45 10^3/uL (1.8-7.7); Neutrophils % 57.1 %; Nucleated Red Blood Cells % 0 %; Platelet Count 215 10^3/cmm (157-399); Red Blood Count 4.54 10^6/uL (3.85-5.65); Red Cell Distribution Width 13.1 % (12.1-15.1); White Blood Count 4.29 10^3/uL (3.29-11.43)
[2023-02-16 13:29] LABS: Carcinoembryonic Antigen 0.9 ng/mL (0.0-4.7)
[2023-02-16 13:46] LABS: Alanine Aminotransferase 19 U/L (0-33); Albumin Level 4.3 g/dL (3.5-5.2); Alkaline Phosphatase 73 U/L (35-105); Anion Gap 13.2 (5-19); Aspartate Amino Transferase 15 U/L (0-32); Blood Urea Nitrogen 15 mg/dL (8-23); Calcium 9.6 mg/dL (8.5-10.5); Carbon Dioxide 26 mmol/L (22-29); Chloride 106 mmol/L (98-107); Globulin 3.4 g/dL (1.3-4.6); Glomerular Filtration Rate 71.8 mL/min (90-130); Glucose 97 mg/dL (65-115); Osmolality Calculated 293 mOsm/kg (285-295); Potassium 4.2 mmol/L (3.5-5.1); Sodium 141 mmol/L (136-145); Total Bilirubin 0.4 mg/dL (0.15-1.2); Total Protein 7.7 g/dL (6.6-8.7)
== END 2023-03-08 23:59 | disposition home or self-care (01) ==
PROVIDERS: Nurse Practitioner Family; PCP Family Medicine; Visit Provider Internal Medicine Hematology & Oncology
DX: Z08 Encounter for follow-up examination after completed treatment for malignant neoplasm (principal); Z85.048 Personal history of other malignant neoplasm of rectum, rectosigmoid junction, and anus; Z92.21 Personal history of antineoplastic chemotherapy; Z92.3 Personal history of irradiation
CPT/HCPCS: 36415; 80053; 82378; 85025; 99214

== ENCOUNTER 2023-04-22 12:20 | Outpatient (CLI) | payer MEDICARE, SELFPAY ==
--- NOTE | 2023-04-22 12:25 | XR_ITS ---
WS: [id number] Right foot, 3 views, 04/22/2023 Clinical Data: right heel pain Comparison: None. Findings: No fractures or dislocations are seen. No bone destruction or erosion is noted. There is a bunion at the head of the right first metatarsal. There is a small plantar spur. Impression: Bunion at the head of the right first metatarsal.
== END 2023-04-22 12:21 | disposition home or self-care (01) ==
LOC: RAD 12:21
PROVIDERS: PCP Family Medicine; Visit Provider Nurse Practitioner Family
DX: M21.611 Bunion of right foot (principal)
CPT/HCPCS: 73630

== ENCOUNTER → 2023-05-04 11:32 | Outpatient (BNVA) | payer MEDICARE, SELFPAY | PROVIDERS: PCP Family Medicine; Visit Provider Podiatrist Foot & Ankle Surgery | DX: M72.2 Plantar fascial fibromatosis; M21.611 Bunion of right foot; M25.871 Other specified joint disorders, right ankle and foot | CPT/HCPCS: 99203 ==

== ENCOUNTER 2023-05-25 12:07 | Oncology outpatient (recurring) (ONCR) | payer MEDICARE, SELFPAY ==
[2023-05-25 12:41] LABS: Eosinophils # 0.1 10^3/uL (0.0-0.8); Eosinophils % 1.8 %; Hematocrit 38.4 % (36-47); Lymphocytes # 1.2 10^3/uL (0.8-4.8); Mean Corpuscular HGB Conc 32.8 g/dL (30-55); Mean Corpuscular Hemoglobin 28.5 pg (27-33); Mean Corpuscular Volume 86.9 fl (85-98); Mean Platelet Volume 8.9 fL (7.4-10.4); Monocytes # 0.4 10^3/uL (0.2-0.9); Monocytes % 10.3 %; Neutrophils # 2.11 10^3/uL (1.8-7.7); Neutrophils % 54.6 %; Nucleated Red Blood Cells % 0 %; Platelet Count 207 10^3/cmm (157-399); Red Blood Count 4.42 10^6/uL (3.85-5.65); White Blood Count 3.87 10^3/uL (3.29-11.43)
[2023-05-25 12:57] LABS: Alanine Aminotransferase 27 U/L (0-33); Albumin Level 4.1 g/dL (3.5-5.2); Alkaline Phosphatase 73 U/L (35-105); Aspartate Amino Transferase 20 U/L (0-32); Blood Urea Nitrogen 14 mg/dL (8-23); Calcium 9.1 mg/dL (8.5-10.5); Carbon Dioxide 26 mmol/L (22-29); Chloride 103 mmol/L (98-107); Glomerular Filtration Rate 71.5 mL/min (90-130); Glucose 102 mg/dL (65-115); Osmolality Calculated 287 mOsm/kg (285-295); Sodium 138 mmol/L (136-145); Total Bilirubin 0.5 mg/dL (0.15-1.2); Total Protein 7.1 g/dL (6.6-8.7)
== END 2023-06-07 23:59 | disposition home or self-care (01) ==
PROVIDERS: Internal Medicine Medical Oncology; PCP Family Medicine; Visit Provider Internal Medicine Hematology & Oncology
DX: Z08 Encounter for follow-up examination after completed treatment for malignant neoplasm (principal); Z85.048 Personal history of other malignant neoplasm of rectum, rectosigmoid junction, and anus; Z92.21 Personal history of antineoplastic chemotherapy; Z92.3 Personal history of irradiation
CPT/HCPCS: 36415; 80053; 82378; 85025; 99213

== ENCOUNTER 2023-09-30 12:20 | Outpatient (CLI) | payer MEDICARE, SELFPAY ==
--- NOTE | 2023-09-30 12:30 | CT_ITS ---
WS: [id number] CT CHEST, ABDOMEN AND PELVIS WITH CONTRAST HISTORY: History of colorectal cancer. LEFT hip pain. TECHNIQUE: Contiguous 5 mm axial imaging performed through the chest, abdomen and pelvis with IV cont rast, oral contrast has been provided. Coronal and sagittal reformats chest. Coronal and sagittal ref ormats through the abdomen and pelvis. All CT scans at [facility] use at least one of these d ose optimization techniques: automated exposure control; mA and/or kV adjustment per patient size (in cludes targeted exams where dose is matched to clinical indication); or iterative reconstruction. CONTRAST: Omnipaque 350; 100 mL IV. DLP: 687.60 mGy.cm COMPARISON: 01/07/[address]: Lungs are mildly hyperexpanded. Stable groundglass nodule RIGHT upper lobe. No new or enlar ging pulmonary nodules or masses. There are a few micronodules scattered throughout the lungs. No tina picion for malignancy. No mediastinal or hilar adenopathy. No pericardial or pleural effusions. Lorna l size pulmonary artery. Mild atherosclerosis aorta. Aberrant RIGHT subclavian artery. Bilateral breast implants. Abdomen CT: Negative liver, gallbladder and spleen. Normal portal vein. No bile duct dilatation. Norm al pancreas. Long-term stability LEFT adrenal mass measuring 1.7 cm is probably an adenoma. LEFT adre nal gland is normal. Moderate atherosclerotic plaque aorta. No aneurysm. Mesenteric arteries are lovett nt. No GI tract obstruction. No colitis. Mild diffuse constipation. Low rectal anastomotic site. There is no recurrent mass identified. No adenopathy in the pelvis. No ascites. Pelvic CT: Urinary bladder is normally distended. Prior hysterectomy. Moderate RIGHT scoliosis and curvature lumbar spine. Mild fibrous dysplasia or Paget's disease the LE FT iliac wing, posterior. Similar to prior studies. CT/CT chest abdpel w/*[id number] IMPRESSION: 1. No metastatic disease within the chest, abdomen or pelvis. No new pulmonary mass or nodule or increasing size of nodules. 2. Distal rectal anastomotic site is intact. No recurrent mass or adenopathy. 3. No metastatic disease to the liver. 4. Long-term stability RIGHT adrenal mass which is probably an adenoma. 5. No new sclerotic or lytic bone lesions to suggest metastatic disease. No ch deonte in the subtle LEFT ilium bone lesion which is probably fibrous dysplasia. 6. Prior hysterectomy.
[2023-09-30 13:03] LABS: Basophils % 0.6 %; Eosinophils # 0.1 10^3/uL (0.0-0.8); Eosinophils % 2.1 %; Hematocrit 38.9 % (36-47); Lymphocytes # 1.8 10^3/uL (0.8-4.8); Lymphocytes % 38.4 %; Mean Corpuscular HGB Conc 33.2 g/dL (30-55); Mean Corpuscular Hemoglobin 29.3 pg (27-33); Mean Corpuscular Volume 88.2 fl (85-98); Mean Platelet Volume 9.1 fL (7.4-10.4); Monocytes # 0.5 10^3/uL (0.2-0.9); Monocytes % 9.7 %; Neutrophils # 2.33 10^3/uL (1.8-7.7); Neutrophils % 49.2 %; Nucleated Red Blood Cells % 0 %; Platelet Count 250 10^3/cmm (157-399); Red Blood Count 4.41 10^6/uL (3.85-5.65); Red Cell Distribution Width 12.8 % (12.1-15.1); White Blood Count 4.74 10^3/uL (3.29-11.43)
[2023-09-30] MEDS: iohexol 350 mg/mL 500 mL Btl (per mL) PO (13:12)
[2023-09-30 13:29] LABS: Carcinoembryonic Antigen 0.7 ng/mL (0.0-4.7)
[2023-09-30 13:40] LABS: Alanine Aminotransferase 15 U/L (0-33); Albumin Level 4.1 g/dL (3.5-5.2); Alkaline Phosphatase 66 U/L (35-105); Anion Gap 14.7 (5-19); Aspartate Amino Transferase 12 U/L (0-32); Blood Urea Nitrogen 14 mg/dL (8-23); Calcium 8.6 mg/dL (8.5-10.5); Carbon Dioxide 23 mmol/L (22-29); Chloride 106 mmol/L (98-107); Globulin 3.4 g/dL (1.3-4.6); Glomerular Filtration Rate 71.5 mL/min (90-130); Glucose 141 mg/dL (65-115); Osmolality Calculated 293 mOsm/kg (285-295); Potassium 3.7 mmol/L (3.5-5.1); Sodium 140 mmol/L (136-145); Total Bilirubin 0.4 mg/dL (0.15-1.2); Total Protein 7.5 g/dL (6.6-8.7)
[2023-09-30] MEDS: iohexol 350 mg/mL 500 mL Btl (per mL) IV (13:52)
== END 2023-09-30 12:21 | disposition home or self-care (01) ==
LOC: RAD 12:21
PROVIDERS: PCP Family Medicine; Visit Provider Nurse Practitioner Family
DX: Z85.048 Personal history of other malignant neoplasm of rectum, rectosigmoid junction, and anus (principal); R91.8 Other nonspecific abnormal finding of lung field; Z98.82 Breast implant status; E27.8 Other specified disorders of adrenal gland; Z98.890 Other specified postprocedural states; M41.9 Scoliosis, unspecified; M89.9 Disorder of bone, unspecified
CPT/HCPCS: 36415; 71260; 74177; 80053; 82378; 85025; Q9967

== ENCOUNTER 2024-02-10 12:01 | Outpatient (CLI) | payer MEDICARE, SELFPAY ==
--- NOTE | 2024-02-10 15:30 | XR_ITS ---
WS: [id number] SCREENING DEXA SCAN [employer] CLINICAL INFORMATION: M81.0 - Age-related osteoporosis without current patholog... COMPARISON: 2021 FINDINGS: The L1-L4 bone mineral density measures 0.806 g/cm2. This corresponds to a T score score of -3.1 and Z score of -1.6. Left femoral neck bone mineral density measures 0.837 g/cm2. This corresponds to a T score of -1.4 an d Z score of -0.1. Right femoral neck bone mineral density measures 0.814 g/cm2. This corresponds to a T score -1.5of an d Z score of -0.3. Mean femoral neck bone mineral density measures 0.826 g/cm2. This corresponds to a T score of -1.4 an d Z score of -0.2. XR/XR DEXA axial skeleton* [id number] IMPRESSION: Osteoporosis lumbar spine. Osteopenia femoral necks. Patient's FRAX calculated 10 year probability for major osteoporotic fracture i s 19.1% and osteoporotic hip fracture is 3.6%. Bone mineral density lumbar spine increased 5.6% Bone mineral density femoral necks increased 3.0%
== END 2024-02-10 12:02 | disposition home or self-care (01) ==
LOC: RAD 12:02
PROVIDERS: PCP Family Medicine; Visit Provider Nurse Practitioner Family
DX: Z13.820 Encounter for screening for osteoporosis (principal); M81.0 Age-related osteoporosis without current pathological fracture
CPT/HCPCS: 77080

== ENCOUNTER 2024-09-28 12:40 | Oncology outpatient (recurring) (ONCR) | payer MEDICARE, SELFPAY ==
[2024-09-23 10:14] LABS: Hematocrit 37.4 % (36-47); Hemoglobin 12.50 g/dL (11.27-16.99); Mean Corpuscular HGB Conc 33.4 g/dL (30-55); Mean Corpuscular Hemoglobin 28.6 pg (27-33); Mean Corpuscular Volume 85.6 fl (85-98); Nucleated Red Blood Cells % 0 %; Platelet Count 214 10^3/cmm (157-399); Red Blood Count 4.37 10^6/uL (3.85-5.65); White Blood Count 4.05 10^3/uL (3.29-11.43)
[2024-09-23 10:40] LABS: Carcinoembryonic Antigen 0.7 ng/mL (0.0-4.7)
[2024-09-23 10:51] LABS: Alanine Aminotransferase 14 U/L (0-33); Albumin Level 4.0 g/dL (3.5-5.2); Alkaline Phosphatase 69 U/L (35-105); Anion Gap 18.2 (5-19); Aspartate Amino Transferase 12 U/L (0-32); Blood Urea Nitrogen 21 mg/dL (8-23); Calcium 9.4 mg/dL (8.5-10.5); Carbon Dioxide 23 mmol/L (22-29); Chloride 102 mmol/L (98-107); Creatinine Clr Calc Pharmacy 68.7650; Globulin 3.0 g/dL (1.3-4.6); Glucose 123 mg/dL (65-115); Osmolality Calculated 292 mOsm/kg (285-295); Potassium 4.2 mmol/L (3.5-5.1); Sodium 139 mmol/L (136-145); Total Protein 7.0 g/dL (6.6-8.7)
--- NOTE | 2024-09-28 12:40 | MM_ITS ---
WS: [id number] BILATERAL 3D TOMOSYNTHESIS DIGITAL SCREENING MAMMOGRAPHY WITH CAD CLINICAL INFORMATION: screening mammo HISTORY: Screening mammogram. No current complaints. COMPARISON: 2022 TECHNIQUE: Bilateral CC and MLO views. FINDINGS: Breast implants are stable in appearance. Scattered fibroglandular densities bilaterally. No suspicious focal mass, asymmetry, calcifications, or architectural distortion. No evidence of malignancy. Punctate lucent centered calcifications. MM/MM scr tomosynthesis [id number] IMPRESSION: DENSITY: There are scattered areas of fibroglandular density. BI-RADS: 2 - Benign. FOLLOW UP: 1 Year Follow-up Recommend return to annual screening mammography.
== END 2024-10-06 23:59 | disposition home or self-care (01) ==
LOC: ONCMED 13:09 → RAD 09-29 → ONCMED 09-29 08:58
PROVIDERS: Nurse Practitioner; PCP Nurse Practitioner Family; Visit Provider Internal Medicine
DX: Z12.31 Encounter for screening mammogram for malignant neoplasm of breast (principal); Z85.048 Personal history of other malignant neoplasm of rectum, rectosigmoid junction, and anus; Z98.82 Breast implant status; R92.323 Mammographic fibroglandular density, bilateral breasts; R92.1 Mammographic calcification found on diagnostic imaging of breast
CPT/HCPCS: 36415; 77063; 77067; 80053; 80061; 82378; 83036; 83721; 84443; 85025; 99214

== ENCOUNTER 2024-10-13 09:38 | Oncology outpatient (recurring) (ONCR) | payer MEDICARE, SELFPAY ==
--- NOTE | 2024-10-13 10:30 | CT_ITS ---
WS: [id number] CT CHEST, ABDOMEN AND PELVIS WITH CONTRAST HISTORY: Follow-up colorectal cancer. TECHNIQUE: Contiguous 5 mm axial imaging performed through the chest, abdomen and pelvis with IV contrast, oral contrast has been provided. Coronal and sagittal reformats chest. Coronal and sagittal reformats through the abdomen and pelvis. All CT scans at [facility] use at least one of these dose optimization techniques: automated exposure control; mA and/or kV adjustment per patient size (includes targeted exams where dose is matched to clinical indication); or iterative reconstruction. CONTRAST: Omnipaque 350; 100 mL IV. DLP: 697.56 mGy.cm COMPARISON: 09/30/[address]: Lungs are clear. No pneumonia. No pulmonary nodules or metastatic disease. Mild atherosclerosis aorta. Apparent RIGHT subclavian artery. Normal size pulmonary arteries. Normal size heart. No pericardial or pleural effusions. No mediastinal or hilar adenopathy. Bilateral breast implants are identified. There is a small hiatal hernia. Mild increase in thoracic kyphosis. Abdomen CT: Normal liver. No metastatic disease. Normal portal vein. Normal gallbladder and spleen. Normal pancreas and LEFT adrenal gland. Low-attenuation RIGHT adrenal nodule measures 1.5 cm and is stable. Kidneys are enhancing normally. No cyst or solid mass or obstruction. Moderate atherosclerotic plaque within the aorta. SMA and celiac axis are patent. Stomach is minimally distended with oral contrast. No small bowel obstruction. No appendicitis. No colon obstruction. No colitis. Surgical anastomosis at the rectoanal junction intact. No recurrent soft tissue mass. No ascites or adenopathy. No mesenteric implants. Pelvic CT: No free fluid or adenopathy. Normally distended urinary bladder. Prior hysterectomy. RIGHT curvature lumbar spine. No bone destruction. CT/CT chest abdpel w/*[id number] IMPRESSION: 1. No metastatic disease identified within the chest, abdomen or pelvis. No me tastatic disease to the lungs or liver. 2. Long-term stability 1.5 cm RIGHT adrenal nodule. Also negative on PET/CT im aging from 02/03/2023. 3. Low rectal anastomotic site with no recurrent mass. No adjacent adenopathy. Stable. 4. Prior hysterectomy.
[2024-10-13] MEDS: iohexol 350 mg/mL 500 mL Btl (per mL) PO (10:48)
[2024-10-13] MEDS: iohexol 350 mg/mL 500 mL Btl (per mL) IV (10:49)
== END 2024-11-06 23:59 | disposition home or self-care (01) ==
LOC: ONCMED 09:40
PROVIDERS: PCP Nurse Practitioner Family; Visit Provider Internal Medicine
DX: Z08 Encounter for follow-up examination after completed treatment for malignant neoplasm (principal); Z85.048 Personal history of other malignant neoplasm of rectum, rectosigmoid junction, and anus; E27.8 Other specified disorders of adrenal gland; I70.0 Atherosclerosis of aorta; K44.9 Diaphragmatic hernia without obstruction or gangrene; M40.294 Other kyphosis, thoracic region; M43.8X6 Other specified deforming dorsopathies, lumbar region; Z98.890 Other specified postprocedural states; Z90.710 Acquired absence of both cervix and uterus; Z98.82 Breast implant status
CPT/HCPCS: 71260; 74177

== ENCOUNTER 2025-02-09 15:19 | Outpatient (CLI) | payer MEDICARE, SELFPAY ==
--- NOTE | 2025-02-09 15:22 | XR_ITS ---
WS: [id number] Exam: XR ribs RT 2V* [id number] Date/Time of Exam: 02/09/2025 3:24 PM Reason For Exam: S22.49XA - Multiple fractures of ribs, unspecified side, ... There are nondisplaced fractures involving the posterior lateral aspects of the RIGHT sixth, seventh and eighth ribs. Also probable nondisplaced fracture of the RIGHT posterior lateral fifth rib. No other acute fractures are noted. The RIGHT lung is clear and fully inflated. No pleural or pulmonary reactive changes are noted. XR/XR ribs RT 2V* [id number] IMPRESSION: 1. Nondisplaced fractures of the posterior lateral RIGHT sixth seventh and eigh th ribs. The posterior lateral RIGHT fifth rib is also probably fractured. 2. No pneumothorax or reactive pleural change.
== END 2025-02-09 15:20 | disposition home or self-care (01) ==
LOC: RAD 15:20
PROVIDERS: PCP Nurse Practitioner Family; Visit Provider Nurse Practitioner Family
DX: S22.41XA Multiple fractures of ribs, right side, initial encounter for closed fracture (principal); X58.XXXA Exposure to other specified factors, initial encounter
CPT/HCPCS: 71100

== ENCOUNTER → 2025-02-15 13:10 | Outpatient (BNVA) | payer MEDICARE, SELFPAY | PROVIDERS: PCP Nurse Practitioner Family; Visit Provider Nurse Practitioner Family | DX: Z13.6 Encounter for screening for cardiovascular disorders (principal); I10 Essential (primary) hypertension; M81.0 Age-related osteoporosis without current pathological fracture; E55.9 Vitamin D deficiency, unspecified; R13.10 Dysphagia, unspecified | CPT/HCPCS: 80053; 80061; 84443; 85025 ==

== ENCOUNTER 2025-03-01 13:25 | Oncology outpatient (recurring) (ONCR) | payer MEDICARE, SELFPAY ==
--- NOTE | 2025-03-01 13:45 | CTR_ITS ---
PROCEDURE INFORMATION: Exam: CT Chest With Contrast; Diagnostic Exam date and time: 03/01/2025 1:39 PM Age: 70 years old Clinical indication: Abnormal findings; Abnormal radiologic exam of lung or chest; Abnormal finding in lung field/adrenal nodule; Additional info: R91.8 - other nonspecific abnormal finding of lung field TECHNIQUE: Imaging protocol: Diagnostic computed tomography of the chest with contrast. Radiation optimization: All CT scans at this facility use at least one of these dose optimization techniques: automated exposure control; mA and/or kV adjustment per patient size (includes targeted exams where dose is matched to clinical indication); or iterative reconstruction. Contrast material: OMNIPAQUE 350; Contrast volume: 100 ml; Contrast route: INTRAVENOUS (IV); COMPARISON: CT chest abdpel w/*[id number] 10/13/2024 10:41 AM RADIATION DOSE METRICS: Total DLP (mGy-cm): 883.03 FINDINGS: Lungs: Few small areas of peripheral ground-glass opacity in the lower lobes, favoring atelectatic changes. No suspicious mass or consolidation. Pleural spaces: Unremarkable. No pneumothorax. No pleural effusion. Heart: Unremarkable. No cardiomegaly. No pericardial effusion. Coronary arteries: No coronary artery calcifications Lymph nodes: No lymph node enlargement. Vasculature: Recurrent right subclavian artery again noted. Bones/joints: First rib anomaly bilaterally, with apparent fusion with cervical ribs. Nondisplaced healing fractures of the right 2nd through 7th ribs laterally, developed since the prior exam. Moderate thoracic levoscoliosis again noted. Subacute, mildly depressed fracture involving the manubrium, developed since the prior exam. Soft tissues: Unchanged appearance to breast implants, with decreased volume and slight redundancy on the left. CT/CT chest w con* [id number] IMPRESSION: 1. Nondisplaced healing fractures of the right 2nd through 7th ribs laterally, developed since the prior exam. 2. Subacute, mildly depressed fracture involving the manubrium, developed since the prior exam. 3. No evidence for metastatic disease to the chest.
--- NOTE | 2025-03-01 13:45 | CTR_ITS ---
PROCEDURE INFORMATION: Exam: CT Abdomen And Pelvis Without And With Contrast; Adrenals Exam date and time: 03/01/2025 1:39 PM Age: 70 years old Clinical indication: Condition or disease; Prior surgery; Surgery date: 6+ months; Surgery type: Colorectal, hyst; Adrenal nodule follow up; Additional info: D73.89 - other diseases of spleen, adrenal protocol TECHNIQUE: Imaging protocol: Computed tomography of the abdomen and pelvis without and with intravenous contrast. Exam focused on the adrenals. Radiation optimization: All CT scans at this facility use at least one of these dose optimization techniques: automated exposure control; mA and/or kV adjustment per patient size (includes targeted exams where dose is matched to clinical indication); or iterative reconstruction. Contrast material: OMNIPAQUE 350; Contrast volume: 100 ml; Contrast route: INTRAVENOUS (IV); COMPARISON: CT chest abdpel w/*[id number] 10/13/2024 10:41 AM RADIATION DOSE METRICS: Total DLP (mGy-cm): 883.03 FINDINGS: Lungs: Mild atelectatic changes at the right lung base posteriorly. Liver: The liver is diffusely decreased in density, compatible with hepatic steatosis. Gallbladder and biliary ducts: The gallbladder is normal. There is no evidence of biliary ductal dilation. Pancreas: Normal. No ductal dilation. Spleen: Normal. No splenomegaly. Adrenal glands: Unchanged 1.5 cm right adrenal nodule, demonstrating washout characteristics consistent with adenoma. No left adrenal mass. Kidneys: Normal kidneys. No hydronephrosis. Stomach and bowel: Normal. No obstruction. No mucosal thickening. Appendix: No evidence of appendicitis. Intraperitoneal space: Unremarkable. No free air. No significant fluid collection. Lymph nodes: Unremarkable. No enlarged lymph nodes. Vasculature: Unremarkable. No abdominal aortic aneurysm. Urinary bladder: Unremarkable. Reproductive: Unremarkable. Bones/joints: Interval mild L5 compression fracture, demonstrating superior endplate depression which is moderately sclerotic. Moderate upper lumbar dextroscoliosis. Soft tissues: Breast implants are partially imaged. CT/CT abdomen wo/w con [id number] IMPRESSION: 1. Unchanged 1.5 cm right adrenal nodule, demonstrating washout characteristics consistent with adenoma. 2. Interval mild L5 compression fracture, demonstrating superior endplate depression which is moderately sclerotic. The appearance suggests a subacute or chronic fracture, although it has developed since the prior exam. L5 was incompletely imaged on this exam. 3. No acute disease otherwise identified.
[2025-03-01] MEDS: iohexol 350 mg/mL 500 mL Btl (per mL) IV (13:46)
== END 2025-03-08 23:59 | disposition home or self-care (01) ==
LOC: ONCMED 13:26
PROVIDERS: PCP Nurse Practitioner Family; Visit Provider Internal Medicine
DX: Z85.048 Personal history of other malignant neoplasm of rectum, rectosigmoid junction, and anus (principal); E27.8 Other specified disorders of adrenal gland; I70.0 Atherosclerosis of aorta; K44.9 Diaphragmatic hernia without obstruction or gangrene; M40.294 Other kyphosis, thoracic region; M43.8X6 Other specified deforming dorsopathies, lumbar region; Z98.890 Other specified postprocedural states; Z90.710 Acquired absence of both cervix and uterus; Z98.82 Breast implant status; Z08 Encounter for follow-up examination after completed treatment for malignant neoplasm; Z92.21 Personal history of antineoplastic chemotherapy; Z92.3 Personal history of irradiation; R91.8 Other nonspecific abnormal finding of lung field; Z85.9 Personal history of malignant neoplasm, unspecified; D73.89 Other diseases of spleen; V89.2XXA Person injured in unspecified motor-vehicle accident, traffic, initial encounter
CPT/HCPCS: 71260; 74170

== ENCOUNTER 2025-03-07 11:59 | Outpatient (RCR) | payer MEDICARE, SELFPAY | END 2025-03-08 23:59 | disposition home or self-care (01) | LOC: TPT 11:59 | PROVIDERS: PCP Nurse Practitioner Family; Visit Provider Nurse Practitioner Family | DX: S22.49XD Multiple fractures of ribs, unspecified side, subsequent encounter for fracture with routine healing (principal); M54.9 Dorsalgia, unspecified; M25.562 Pain in left knee; X58.XXXD Exposure to other specified factors, subsequent encounter | CPT/HCPCS: 97110; 97162 ==